=== PATIENT | female | born 1960 | race Caucasian/White ===

== ENCOUNTER 2018-01-18 11:27 | Day surgery (SDC) | payer MEDICAID, SELFPAY ==
[2018-01-16 15:23] VITALS: BP 139/89; PULSE 91; RESP 16; TEMP 36.6; O2SAT 92; BMI 27.1
--- NOTE | 2018-01-16 15:28 | SDCEKG_ITS ---
Test Reason : Blood Pressure : / mmHG Vent. Rate : 083 BPM Atrial Rate : 083 BPM P-R Int : 168 ms QRS Dur : 076 ms QT Int : 368 ms P-R-T Axes : 067 012 040 degrees QTc Int : 432 ms Normal sinus rhythm Septal infarct , age undetermined Abnormal ECG Confirmed by MARY PITTMAN, ZEE ([id number]), editor city ERIC CHEN ([id number]) on 01/17/2018 1:20:40 PM Referred By: Neville Stanford Confirmed By:ZEE HERNANDEZ MD
--- NOTE | 2018-01-16 15:46 | RAD_ITS ---
STUDY: X-RAY CHEST REASON FOR EXAM: Female, 57 years old. Pre-op right humerus fracture. TECHNIQUE: PA and lateral views of the chest. COMPARISON: None. FINDINGS: There are calcified breast implants bilaterally. The lungs are clear and expanded. There is no demonstrated pleural abnormality. Normal size heart. Normal mediastinum and adamaris. Normal visualized pulmonary arteries. There is atherosclerotic calcification of the aortic arch with tortuosity. There are diffuse degenerative changes of the visualized thoracic spine. There is a displaced fracture of the right humeral neck. There is no demonstrated abnormality of the visualized soft tissue structures of the upper abdomen. RAD/Chest PA and Lateral IMPRESSION: 1. No acute cardiopulmonary disease. 2. Displaced fracture of the right humeral neck. Electronically Signed: Romeo Salinas DO at 16:44 EDT Tel [phone], Service support ,
[2018-01-16 16:09] LABS: International Normalized Ratio 1.2; Prothrombin Time (Protime)PT. 15.1 SECONDS (11.7-14.9)
[2018-01-16 16:10] LABS: Partial Thromboplast Time 29.5 Seconds (24.1-36.2)
[2018-01-16 16:11] LABS: Hematocrit 41.1 % (37-47); Hemoglobin 13.6 g/dl (12.0-15.0); Mean Corp Hgb Conc 33.1 g/gl (32-36); Mean Corpuscular Volume 96.7 fL (81-99); Mean Platelet Vol. 9.9 fl (6.2-12.0); Platelet Count 285 K/mm3 (150-450); RBC Distribution Width CV 13.1 % (11.6-14.6); RBC Distribution Width SD 45.7 fl (35.1-43.9); Red Blood Count 4.25 M/mm3 (4.2-5.4); White Blood Count 6.9 K/mm3 (4.4-11.0)
[2018-01-16 16:16] LABS: Scan Indicated on CBC? Y/N NO
[2018-01-16 16:45] LABS: AST(SGOT) 30 U/L (15-37); Alanine Aminotransfer ALT/SGPT 32 U/L (13-56); Albumin, Serum 3.2 g/dL (3.2-5.0); Alkaline Phosphatase 150 U/L (45-117); Anion Gap 7 (5-15); BUN 10 mg/dL (7-18); BUN/Creat Ratio 19.2 RATIO (10-20); Calcium,Total 8.8 mg/dL (8.5-10.1); Chloride 101 mmol/L (98-107); Creatinine, Serum 0.52 mg/dL (0.55-1.02); EST Glomerular Filtration Rate 129 mL/min (>60); Est Glom Filt Rate - Afr Amer 156 mL/min (>60); Estimated Creatinine Clearance 117.47 ml/min; Globulin 4.8 g/dL (2.2-4.2); Glucose 97 mg/dL (74-106); Potassium 3.8 mmol/L (3.5-5.1); Sodium Level 137 mmol/L (136-145); Thyroid Stim Hormone (TSH) 1.05 uIU/mL (0.358-3.74)
[2018-01-18] VITALS (7 sets, daily range): BP systolic 127–144; BP diastolic 82–94; PULSE 88–104; RESP 16; TEMP 36.1–36.7; O2SAT 91–94; BMI 27.1
[2018-01-18] MEDS: Clindamycin 600 MG/50 ML BAG 100 MG IV (13:43)
--- NOTE | 2018-01-18 14:30 | RAD_ITS ---
STUDY: X-RAY - RIGHT HUMERUS REASON FOR EXAM: Female, 57 years old. ORIF humerus TECHNIQUE: 4 C-arm view(s) of the humerus. 141 seconds fluoroscopy time COMPARISON: None. FINDINGS: These limited field of view images show compression plate and screws fixating the proximal humeral fracture into anatomic alignment and position. Correlate with procedure note. Electronically Signed: Yohan Bridges MD at 0:01 EDT , Service support , RAD/Humerus min 2 Views
--- NOTE | 2018-01-18 15:52 | PCM.OPRPT ---
Report of Operation Date of Procedure: 01/18/18 Pre-Operative Diagnosis: Displaced 2 part right proximal humerus fracture Post-Operative Diagnosis: Displaced 2 part right proximal humerus fracture. Chronic right rotator cuff tear Surgery/Procedure Performed:: Open reduction internal fixation right proximal humerus fracture Description of Surgical Findings:: Adequately reduced fracture with good fixation. Shoulder was taken through range of motion under live fluoroscopy revealing no screws in the joint. Intraoperatively patient was noted to have a chronic tear of the supraspinatus tendon. Because she was not consented for this procedure and did not report previous shoulder issues we elected not to repair this. manager of warehouse: Bobby Jain Type of Anesthesia:: General Anesthesiologist: Ralph Childs Special Medications: 2 g Ancef Estimated Blood Loss (mL): 25 Fluids Replaced: 1400 Description of Procedure: 57-year-old female who sustained a fall with a severely displaced right proximal humerus fracture. Patient was in severe pain unable to function at home. She was taking narcotic pain medications. We discussed operative versus nonoperative treatment of this shoulder fracture based on the displacement and patient's pain I did recommend reduction internal fixation of the right proximal humerus. Risks benefits of the procedure were discussed with the patient including but not limited to blood loss, DVTs, PEs, neurovascular damage, infection, general risk of anesthesia including loss of life. We also discussed nonunion, malunion, hardware cut out and failure of the fracture. We also discussed natural history of these fractures including avascular necrosis and post traumatic osteoarthritis. Patient demonstrated understanding and wished to proceed. Procedure: On the date of the surgery patient's right arm was marked in the preoperative area. Patient was taken back to the operating room where there transferred to the table in the supine position. Anesthesia assumed control of the C-spine airway and all bony prominences were identified well-padded. Anesthesia administered general anesthetic patient was securely fastened the table and placed in a beachchair position. Live x-ray was used to verify that intraoperative x-rays to be appropriately obtained with patient's positioning. Once we had with the patient's position right upper exam he was prepped in sterile fashion while the surgeon scrubbed. Upon reentering the room the right upper extremity was draped in a standard orthopedic fashion. Incision was marked out using the anterior lateral edge of the acromion and going distally. We did rodger the area of the expected axillary nerve between 4 and 6 cm distal to the edge of the acromion. Timeout was called about agreed upon the psych of the psych him that she did be performed, patient's identity and antibiotic given. Continue with a at the skin subcu tissue fat on the fascia. Once identified the fascia and the raphae between the medial and anterior heads of the deltoid we split this. We bluntly dissected down until we are able to identify the axillary nerve in the area where we expected. Once we are able to identify the fracture, was placed in the fracture site in this help this to lever the bone for reduction. We are unable to obtain a full reduction so we placed a Steinmann pin for a joystick. By using the Steinmann pin in the car we are able to obtain an adequate reduction. Steinmann pin was then passed into the shaft in order to help maintain the reduction. Live x-ray was used to verify the reduction during this process and my physician registered dental assistant played a vital role in helping to position the arm for the x-rays while I was reducing the fracture under live x-ray. Once we had obtained an adequate reduction was noted there was a significant cortical defect laterally. Crouton allografts were used to pack this area. Once crouton allografts were used to support the lateral structures we then placed a 5 hole plate. In order to place the plate we placed a Lion underneath the area of the axillary nerve and passed it along the shaft of the humerus. Plate was then passed in the same manner underneath the collar. 2 K wires were passed proximally and a cortical screw was placed in the #3 full distally in order to help provisionally fix the plate and aid in fracture reduction. Once this was done we used live fluoroscopy to verify our plate position and fracture reduction. Once we are satisfied the locking screws were all placed proximally and 2 additional cortical screws were placed distally. These cortical screws were placed percutaneously. #3 cortical screw was removed and a locking screw was placed. The aiming arm was then removed and live fluoroscopy was used to take the arm through range of motion. There is at this time that we noted that the screws were long and needed to be removed. The proximal screws were removed one at a time and replaced with a screws of the appropriate length. Once the new screws were placed arm was taken through range of motion under live x-ray in screw position was verified. At this time we elected to place to calcar screws. We gently dissected out the screws distal to the area of the axillary nerve were able to place them using live fluoroscopy verifying the length of the screws. Once these final screws were placed with a scope to get out normal saline. Live x-ray was used to verify her fracture reduction and plate position which was satisfactory. Wound was copiously irrigated out with normal saline fascia was closed with #1 Vicryl and skin was closed with 2-0 Vicryl and skin arin. During the course of the procedure we did note that the patient had what appeared to be a chronic rotator cuff tear based on patient's lack of previous symptoms and no consent for this procedure we did not repair the rotator cuff. Sterile dressing was placed patient was placed back in her sling and awakened by anesthesia and transferred to the PACU for recovery. During the course of the procedure the physician registered dental assistant played a vital role. His intimate knowledge of my steps in the procedure aided in safe and expedient completion of the procedure. The PA played a vital rolls in positioning particularly in obtaining the appropriate beach chair position and securing the patient's body and head to the table. The PA was also vital in the retraction of soft tissues during the exposure and especially the glenoid work as this is a vital part of the procedure to prevent neurovascular damage. the PA was also vital and protecting soft tissues during times of bony cuts and reaming. He also played a vital role in closure with my direct supervision. The PA was also important during reduction and dislocation of the joint and trials intraoperatively. Grafts/Implants Used: Synthes 5 hole proximal humerus plate, allograft croutons - Complications none - Admit VTE Documentation VTE Present on Admission: No VTE Mechan Device Prophylaxis: SCD's, Thigh High NARA Hose VTE Pharm Prophylaxis ordered?: Yes
[2018-01-18] MEDS: Ketorolac 30 MG/ML Syringe IV (16:43)
== END 2018-01-18 17:55 | disposition home or self-care (01) ==
LOC: SDC 11:28 → ACINP 11:30 → AC 11:32
PROVIDERS: Anesthesiology; Visit Provider Specialist
PROC: (CPT 23615; principal; 2018-01-18 14:10)
DX: S42.221A 2-part displaced fracture of surgical neck of right humerus, initial encounter for closed fracture (principal); W19.XXXA Unspecified fall, initial encounter; Y93.89 Activity, other specified; Y92.9 Unspecified place or not applicable; M75.101 Unspecified rotator cuff tear or rupture of right shoulder, not specified as traumatic; G40.909 Epilepsy, unspecified, not intractable, without status epilepticus; J43.9 Emphysema, unspecified; Z99.81 Dependence on supplemental oxygen; F17.210 Nicotine dependence, cigarettes, uncomplicated; K21.9 Gastro-esophageal reflux disease without esophagitis; F32.9 Major depressive disorder, single episode, unspecified; F41.9 Anxiety disorder, unspecified; F20.9 Schizophrenia, unspecified; F60.3 Borderline personality disorder; E06.9 Thyroiditis, unspecified; Z87.01 Personal history of pneumonia (recurrent); H54.7 Unspecified visual loss; M19.90 Unspecified osteoarthritis, unspecified site; I23.1 Atrial septal defect as current complication following acute myocardial infarction; Z79.82 Long term (current) use of aspirin; Z79.899 Other long term (current) drug therapy
CPT/HCPCS: 23615; 64415; 71046; 73060; 76000; 80048; 80076; 82542; 84443; 85027; 85610; 85730; 86850; 86900; 93005; J7120; J2405

== ENCOUNTER 2018-04-24 08:38 | Outpatient (RCR) | payer MEDICAID, SELFPAY | END 2018-04-24 19:00 | disposition home or self-care (01) | LOC: PT 08:38 | PROVIDERS: Visit Provider Specialist | DX: S42.221D 2-part displaced fracture of surgical neck of right humerus, subsequent encounter for fracture with routine healing (principal) ==

== ENCOUNTER 2018-05-04 14:45 | Outpatient (REF) | payer SELFPAY | END 2018-05-04 18:45 | disposition home or self-care (01) | LOC: EDREF 14:45 | DX: Z04.41 Encounter for examination and observation following alleged adult rape (principal) ==

== ENCOUNTER → 2020-07-21 09:20 | Outpatient (CLI) | payer MEDICAID, SELFPAY ==
--- NOTE | 2020-07-21 09:32 | STEWCON_ITS ---
Reason For Study: SUH Stress Results Protocol: Greg Protocol WITH DEFINITY Maximum Predicted HR: 161 bpm Target HR: 137 bpm % Maximum Predicted HR: 85 % DurationHeart Rate Stage (mm:ss) (bpm) BP Comment Baseline 77 102/66No Chest Pain; 4 ML Diluted Definity Greg Protocol Stage I 3:00 129 104/62No Chest Pain; Mod Dyspnea Greg Protocol Stage II 0:42 137 / No Chest Pain; Severe Dyspnea; Dizzy Recovery 82 104/70No Chest Pain Stress Duration: 3:42 mm:ss Maximum Stress HR: 137 bpm METS: 4 Baseline Echocardiogram Findings Stress Echo Wall motion Data Resting WM Intermediate WM Stress WM Interpretation Summary Exercise stress test. Exercise stress echo. 60-year-old lady with a history of chest pain. Stress protocol: Resting EKG demonstrates normal sinus rhythm with a rate of 79 bpm normal intervals are noted resting blood pressure was 102/66 mmHg. The patient exercised according to the regular Greg protocol for a total duration of 3 minutes and 42 seconds. The maximum heart rate attained was 137 bpm which was 85% of max impacted heart rate the maximum workload was 4.8 metabolic equivalents. The patient maintained sinus rhythm throughout the recording. The test was terminated due to dyspnea. At rest and during peak exercise upsloping ST changes only were noted with no meet the criteria for ischemia. No clinical angina was noted the resting blood pressure was 102/66 with a peak blood pressure 110/74 mmHg. Stress echocardiogram. Resting and stress echocardiographic images were obtained with and without Definity enhancement. The baseline ejection fraction was 55% with a peak ejection fraction of 65%. There was thickening of all jaime and reduction of left ventricular cavity size noted. No clinical angina was noted. Conclusion: Exercise stress echo with no EKG or echocardiographic changes for ischemia at a low workload. The low workload may affect sensitivity for detection of ischemia. No arrhythmias noted. Ordering Physician: Priyank Tan Referring Physician: Chuck Gan Performed By: Isra Candelario, MARIANN
== END ==
PROVIDERS: PCP Student in an Organized Health Care Education/Training Program; Referring Provider Student in an Organized Health Care Education/Training Program; Visit Provider Student in an Organized Health Care Education/Training Program
DX: R06.00 Dyspnea, unspecified (principal); R06.02 Shortness of breath
CPT/HCPCS: 93017; 93350; Q9957; A4216; C8928

== ENCOUNTER → 2020-08-06 10:55 | Outpatient (CLI) | payer MEDICAID, SELFPAY ==
[2020-08-06 11:37] VITALS: BP 108/69; PULSE 85; RESP 16; TEMP 36.6; O2SAT 95; BMI 22.7
--- NOTE | 2020-08-06 11:43 | NURSING ---
Teaching and handout given for myelogram. Pt verbalizes understanding.
--- NOTE | 2020-08-06 12:15 | RAD_ITS ---
PROCEDURE: LUMBAR MYELOGRAM DATE OF EXAMINATION: 08/06/2020. INDICATION: Female, 60 years old. Low back pain. PHYSICIAN: Isai Olivera M.D. CONSENT: The patient''s history and physical findings were reviewed. The lumbar myelogram procedure was discussed with the patient prior to signing a consent. SEDATION: Local anesthesia with 3 mL of 1% lidocaine was used. FLUOROSCOPY TIME (if supplied): (1:42) minutes/seconds. Injection Information: 20 cc of ISOVUE-M 200. Number of images obtained: 4 TECHNIQUE: Digital fluoroscopy was used to identify a safe approach for the lumbar myelogram. The back was prepped and draped in usual fashion. Local anesthesia was utilized. Under fluoroscopic guidance a 22-gauge spinal needle was inserted into the spinal canal at the L3-L4 level. Clear spinal fluid was seen. 20 mL of Isovue 200 M was injected into the spinal canal. Multilevel disc space narrowing and spondylosis. Multilevel extradural defects causing deformity of the thecal sac at the L1-L2, L2-L3, L3-L4 and L4-L5 levels. The patient tolerated the procedure well. CT scan of the lumbar spine will follow. RAD/Lumbar Myelogram IMPRESSION: Successful lumbar myelogram with multiple anterior extradural defects at described. The patient tolerated the procedure well. A CT scan of the lumbar spine will follow. Electronically Signed: Isai Olivera, at 12:52 EDT , Service support ,
[2020-08-06 12:30] VITALS: BP 128/84; PULSE 87; RESP 16; O2SAT 97
[2020-08-06 13:15] VITALS: BP 125/75; PULSE 82; RESP 16; O2SAT 94
[2020-08-06 13:45] VITALS: BP 125/78; PULSE 86; RESP 16; O2SAT 94
[2020-08-06 14:15] VITALS: BP 124/89; PULSE 93; RESP 16; O2SAT 96
--- NOTE | 2020-08-06 15:00 | CT_ITS ---
STUDY: CT LUMBAR SPINE WITH INTRATHECAL CONTRAST (LUMBAR CT MYELOGRAM) REASON FOR EXAM: Female, 60 years old. Post myelogram imaging, bladder incontinence, lumbar disc disease, eval for cauda equina. RADIATION DOSAGE (If Supplied By Facility): CTDIvol = ( 13.82 ) mGy, DLP = ( 415.28 ) mGycm TECHNIQUE: Transaxial images were obtained from the L1 vertebra through the S1 vertebrae, following intrathecal administration of 20 ml of ISOVUE-M 200 contrast material, performed by Dr. Olivera. Please refer to this physicians technical notes for procedural details. Coronal and sagittal reconstructions were obtained. Individualized dose optimization techniques were used for this CT. COMPARISON: None. FINDINGS: Normal lumbar lordosis. There is a levo-scoliosis of the lumbar spine. Normal vertebrae of the lumbar spine. There is dependent layering of contrast material in the distal thecal sac. The conus medullaris terminates in a normal position at the L1-L2 level. There is no demonstrated cauda equina nerve root abnormality or intraspinal mass. L1-2: Marked degree of disc space narrowing with the spondylosis. Central posterior disc herniation causing deformity of the thecal sac and narrowing of the AP diameter of the thecal sac. L2-3: Anterior spondylosis. Left paracentral disc herniation causing deformity of the left side of the thecal sac and narrowing of the left intervertebral foramen. Facet joint osteoarthritis and hypertrophy. L3-4: Moderate sized central disc herniation extending towards the right side of the midline with deformity of the right side of the thecal sac and compression of the right exiting nerve root. L4-5: Marked degree of disc space narrowing with spondylosis and subchondral sclerosis. Moderate degree of central canal stenosis caused by combination of diffuse posterior disc bulge and hypertrophy of the ligamentum flavum. L5-S1: Marked degree of disc space narrowing and spondylosis. There is nonfilling of the left S1 nerve root. No significant disc herniation is seen. Normal visualized sacroiliac joints. Normal visualized paraspinous soft tissue structures. CT/Spine Lumbar WITH Contrast IMPRESSION: Multiple findings as discussed above. Electronically Signed: Isai Olivera, at 16:02 EDT , Service support ,
== END ==
PROVIDERS: PCP Student in an Organized Health Care Education/Training Program; Referring Provider Student in an Organized Health Care Education/Training Program; Visit Provider Student in an Organized Health Care Education/Training Program
DX: R15.9 Full incontinence of feces (principal); R32 Unspecified urinary incontinence; M54.9 Dorsalgia, unspecified; M51.16 Intervertebral disc disorders with radiculopathy, lumbar region
CPT/HCPCS: 62304; 72132; Q9965; Q9967

== ENCOUNTER 2021-07-28 12:27 | Inpatient (IN) | payer MEDICAID, SELFPAY ==
[2021-07-28] VITALS (32 sets, daily range): BP systolic 62–146; BP diastolic 29–101; PULSE 95–123; RESP 17–29; TEMP 36.2–36.6; O2SAT 91–100; BMI 29.7; BMI 28.8
[2021-07-28] MEDS: LORazepam 2 MG/ML Syringe 0.5 MG IV (13:57)
[2021-07-28] MEDS: 0.9% Normal Saline 1,000 ML 500 ML IV (13:58)
[2021-07-28 14:02] LABS: Absolute Lymphocyte Count 1.04 X10^3/uL (0.83-4.51); Absolute Neutrophil Count 4.7 X10^3/uL (2.0-7.7); Basophil# 0.06 X10^3/uL; Basophil% 0.8 % (0-1); Eosinophil# 0.14 X10^3/uL; Eosinophils% 1.8 % (0-5); Lymphocyte # 1.04 X10^3/ul (0.83-4.51); Lymphocyte % 13.5 % (19-41); Mean Corp Hgb Conc 35.7 g/dL (32-36); Mean Corpuscular Hgb 37.6 pg (27.0-32.0); Mean Corpuscular Volume 105.3 fL (81-99); Mean Platelet Vol. 10.6 fl (6.2-12.0); Monocyte# 1.66 X10^3/uL; Monocyte% 21.6 % (0-10); NRBC Flagged by Analyzer 0 % (0-5); Neutrophil # 4.74 X10^3/uL (2.7-7.7); Neutrophil % 61.8 % (47-70); POSITIVE DIFFERENTIAL YES; POSITIVE MORPHOLOGY YES; Platelet Count 112 K/mm3 (150-450); RBC Distribution Width CV 20.5 % (11.6-14.6); RBC Distribution Width SD 77.1 fl (35.1-43.9); Red Blood Count 2.66 M/mm3 (4.2-5.4); White Blood Count 7.7 K/mm3 (4.4-11.0)
[2021-07-28 14:03] LABS: Differential Indicated SCAN CRITERIA MET
[2021-07-28 14:15] LABS: AST(SGOT) 155 U/L (15-37); Alanine Aminotransfer ALT/SGPT 72 U/L (13-56); Albumin, Serum 2.2 g/dL (3.2-5.0); Alkaline Phosphatase 120 U/L (45-117); Anion Gap 10 (5-15); BUN 29 mg/dL (7-18); BUN/Creat Ratio 18.2 RATIO (10-20); Bilirubin, Direct 3.34 mg/dL (0.00-0.30); Calcium,Total 8.9 mg/dL (8.5-10.1); Chloride 104 mmol/L (98-107); Creatinine, Serum 1.59 mg/dL (0.55-1.02); EST Glomerular Filtration Rate 35 mL/min (>60); Est Glom Filt Rate - Afr Amer 43 mL/min (>60); Estimated Creatinine Clearance 36.59 ml/min; Globulin 4.9 g/dL (2.2-4.2); Glucose 96 mg/dL (74-106); Lipase 371 U/L (73-393); Potassium 4.6 mmol/L (3.5-5.1); Protein, Total 7.1 g/dL (6.4-8.2); Sodium Level 134 mmol/L (136-145)
[2021-07-28 14:25] LABS: Lactic Acid 3.5 mmol/L (0.4-1.9)
[2021-07-28 14:32] LABS: Anisocytosis 1+
[2021-07-28 14:38] LABS: Mucous, Urine 0 SEEN /hpf (<or=2+); Red Blood Cells-Urine 0 SEEN /hpf (0-5)
[2021-07-28 14:41] LABS: Color, Urine Amber (Yellow); Glucose, Dipstick Normal (Normal); Ketone-Dipstick 5 mg/dl (Negative); Leukocyte Esterase-Dipstick 25 /ul (Negative); Nitrite-Dipstick Positive (Negative); Occult Blood-Urine Negative /ul (Negative); Protein-Dipstick 30 mg/dl (Negative); Specific Gravity, Urine 1.015 (1.002-1.030); Urine Clarity Sl. Cloudy (Clear); Urine Urobilinogen 8 mg/dl (Normal)
--- NOTE | 2021-07-28 14:43 | EX.ED.DYSGE1 ---
HPI History of Present Illness Chief Complaint: Edema Informant: patient Narrative Narrative: Patient is a 61-year-old female presenting from home at the request of her PCP for concern of worsening ascites, anemia and ROME. Patient was admitted at [facility] on 07/20 and left AMA on 07/22. She has a history of alcohol abuse and states she has been trying to stop drinking but has been feeling shaky. She is also been having ongoing GI bleeding for the past few months. Patient was admitted she had a drop in her hemoglobin to 9.5, occult positive stools and an elevated creatinine 1.52. She had a paracentesis removing 2.3 L of fluid from her abdomen. Patient feels like her fluid is reaccumulated and she has had continued drainage of a small amount of fluid from her paracentesis site. Patient states her last drink was this morning which had a few sips of beer and last night she had half a beer because she felt she is going to withdraw. She does report a history of seizures. She knows she is been doing for the past 40 years. She denies any other complaints at this time. [facility] Medical History AA (alcohol abuse) Cirrhosis of liver GERD (gastroesophageal reflux disease) Seizure Home Medications acetaminophen 500 mg PO Q8 PRN 08/06/20 [History Last Taken Unknown] albuterol sulfate 2 puff INHALATION Q6H PRN PRN 08/06/20 [History Last Taken 07/28/21] folic acid 1 mg PO DAILY 08/06/20 [History Last Taken 07/28/21] pyridoxine (vitamin B6) 100 mg PO DAILY 08/06/20 [History Last Taken 07/28/21] pantoprazole 40 mg PO DAILY 07/28/21 [History Last Taken 07/28/21] thiamine HCl (vitamin B1) 100 mg PO DAILY 07/28/21 [History Last Taken 07/28/21] Allergy/AdvReac Type Severity Reaction Status Date / Time Penicillins Allergy Swelling Verified 07/28/21 12:30 Social History Smoking Status: Current every day smoker tobacco type: cigarettes ROS ROS ED Constitutional Constitutional ED: Reports change in weight and malaise; Denies chills or fever(s) Eyes Eyes: Denies change in vision Cardiovascular Cardiovascular: Denies chest pain or palpitations Gastrointestinal Gastrointestinal: Reports abdominal pain, hematochezia and other Details: Abdominal distention ; Denies vomiting Musculoskeletal Musculoskeletal: Denies arthralgias or myalgias Integumentary Denies rash Neurologic Neurologic: Reports weakness; Denies headache(s) Hematologic/Lymphatic Hematologic/Lymphatic: Reports easy bleeding and easy bruising EXAM Physical Exam Const Vital Signs: 07/28/21 12:27 07/28/21 12:51 07/28/21 14:00 Temperature 97.2 F L 97.8 F Temperature Source Temporal Temporal Pulse Rate 95 103 H Respiratory Rate 18 19 H Respiratory Effort Normal Respiratory Pattern Normal Blood Pressure 113/60 83/45 L Blood Pressure Mean 77 57 Blood Pressure Source Monitor Blood Pressure Position Semi-Fowlers Blood Pressure Location Right Arm Pulse Ox 100 97 Oxygen Delivery Method Room Air 07/28/21 14:27 07/28/21 15:00 07/28/21 15:15 Temperature 97.9 F Temperature Source Temporal Pulse Rate 109 H 113 H 113 H Respiratory Rate 20 H 17 20 H Respiratory Effort Respiratory Pattern Blood Pressure 87/51 L 82/52 L 83/53 L Blood Pressure Mean 63 62 63 Blood Pressure Source Blood Pressure Position Blood Pressure Location Pulse Ox 96 96 96 Oxygen Delivery Method Room Air Room Air Room Air General Appearance ED: other Chronically ill-appearing HEENT Reports dry mucous membranes Negative for tenderness Mouth ED: Yes dry mucous membranes Mouth: dry mucous membranes Eyes PERRL and EOMs intact bilaterally General Eye ED: Yes scleral icterus Neck supple Neck Narrative: Mild JVD present Chest Wall inspection of chest normal Resp normal respiratory effort and clear to auscultation bilaterally Cardio regular rhythm and no murmurs Rate: tachycardic GI GI Narrative: Distended abdomen, positive fluid wave. Patient is tender especially and just below the umbilicus where she has an overlying area of erythema and slight thickening of the skin. She does have a small persistent leak of likely ascites fluid from prior paracentesis in her left lower quadrant. Extremity General Extremety ED: Yes edema; Negative for tenderness General Extremity: edema Neuro oriented x3 and CN's II-XII intact bilaterally Neuro Narrative: No asterixis on exam Sensorium / Orientation: alert Motor Exam: general weakness Psych mental status grossly normal Skin Skin Narrative: Mild bruising on her right forearm. Spider hemangiomas on her chest wall. General Skin Exam: jaundice MDM MDM MDM Narrative Medical decision making narrative: Patient is evaluated for overall decompensation in the setting of acute liver failure. Patient is tachycardic and hypotensive in the ER. She is given a small IV fluid bolus, albumin, and midodrine with no improvement. Central line is placed and she is started on Levophed. Patient does have ascites as well as a lot of tenderness in her abdomen with some redness of her abdominal wall. Differential includes spontaneous bacterial peritonitis as well as abdominal wall cellulitis. She started on broad-spectrum antibiotics. Case is discussed with DEISY, Dr. Gamble, as well as a hospitalist. Initially patient was admitted to the PCU however with worsening hypotension and need for pressors, she is not admitted to the ICU. Patient is agreeable to splenic care. Lab Data Attestation: I reviewed the patient's lab results. Labs: Laboratory Results - last 24 hr 07/28/21 07/28/21 07/28/21 13:45 13:45 13:45 WBC 7.7 RBC 2.66 L Hgb 10.0 L Hct 28.0 L MCV 105.3 H MCH 37.6 H MCHC 35.7 RDW Std Deviation 77.1 H RDW Coeff of Meagan 20.5 H Plt Count 112 L MPV 10.6 Immature Gran % (Auto) 0.500 Neut % (Auto) 61.8 Lymph % (Auto) 13.5 L Haines % (Auto) 21.6 H Eos % (Auto) 1.8 Baso % (Auto) 0.8 Absolute Neuts (auto) 4.7 Absolute Lymphs (auto) 1.04 Nucleated RBC % 0 Differential Comment COMMENT Anisocytosis 1+ PT INR Sodium 134 L Potassium 4.6 Chloride 104 Carbon Dioxide 20.0 L Anion Gap 10 BUN 29 H Creatinine 1.59 H Estim Creat Clear Calc 36.59 Est GFR (MDRD) Af Amer 43 L Est GFR (MDRD) Non-Af 35 L BUN/Creatinine Ratio 18.2 Glucose 96 Lactic Acid Calcium 8.9 Phosphorus Magnesium Total Bilirubin 5.60 H Direct Bilirubin 3.34 H AST 155 H ALT 72 H Alkaline Phosphatase 120 H Ammonia Total Protein 7.1 Albumin 2.2 L Globulin 4.9 H Lipase 371 Urine Color Urine Clarity Urine pH Ur Specific [place] Urine Protein Urine Glucose (UA) Urine Ketones Urine Occult Blood Urine Nitrite Urine Bilirubin Urine Urobilinogen Ur Leukocyte Esterase Urine RBC Urine WBC Ur Squamous Epith Cells Urine Bacteria Hyaline Casts Urine Mucus Ethyl Alcohol 94.0 Blood Type Antibody Screen 07/28/21 07/28/21 07/28/21 13:45 13:45 13:45 WBC RBC Hgb Hct MCV MCH MCHC RDW Std Deviation RDW Coeff of Meagan Plt Count MPV Immature Gran % (Auto) Neut % (Auto) Lymph % (Auto) Haines % (Auto) Eos % (Auto) Baso % (Auto) Absolute Neuts (auto) Absolute Lymphs (auto) Nucleated RBC % Differential Comment Anisocytosis PT INR Sodium Potassium Chloride Carbon Dioxide Anion Gap BUN Creatinine Estim Creat Clear Calc Est GFR (MDRD) Af Amer Est GFR (MDRD) Non-Af BUN/Creatinine Ratio Glucose Lactic Acid 3.5 H* Calcium Phosphorus 2.7 Magnesium 1.7 Total Bilirubin Direct Bilirubin AST ALT Alkaline Phosphatase Ammonia Total Protein Albumin Globulin Lipase Urine Color Urine Clarity Urine pH Ur Specific [place] Urine Protein Urine Glucose (UA) Urine Ketones Urine Occult Blood Urine Nitrite Urine Bilirubin Urine Urobilinogen Ur Leukocyte Esterase Urine RBC Urine WBC Ur Squamous Epith Cells Urine Bacteria Hyaline Casts Urine Mucus Ethyl Alcohol Blood Type A POSITIVE Antibody Screen NEGATIVE 07/28/21 07/28/21 07/28/21 14:32 15:20 15:20 WBC RBC Hgb Hct MCV MCH MCHC RDW Std Deviation RDW Coeff of Meagan Plt Count MPV Immature Gran % (Auto) Neut % (Auto) Lymph % (Auto) Haines % (Auto) Eos % (Auto) Baso % (Auto) Absolute Neuts (auto) Absolute Lymphs (auto) Nucleated RBC % Differential Comment Anisocytosis PT 23.5 H INR 2.2 Sodium Potassium Chloride Carbon Dioxide Anion Gap BUN Creatinine Estim Creat Clear Calc Est GFR (MDRD) Af Amer Est GFR (MDRD) Non-Af BUN/Creatinine Ratio Glucose Lactic Acid Calcium Phosphorus Magnesium Total Bilirubin Direct Bilirubin AST ALT Alkaline Phosphatase Ammonia 44.0 H Total Protein Albumin Globulin Lipase Urine Color Izabel Urine Clarity Sl. Cloudy Urine pH 5.0 Ur Specific [place] 1.015 Urine Protein 30 H Urine Glucose (UA) Normal Urine Ketones 5 H Urine Occult Blood Negative Urine Nitrite Positive H Urine Bilirubin 3 H Urine Urobilinogen 8 H Ur Leukocyte Esterase 25 H Urine RBC 0 SEEN Urine WBC 0-5 SEEN Ur Squamous Epith Cells 0-5 SEEN Urine Bacteria 1+ Hyaline Casts 5-10 SEEN Urine Mucus 0 SEEN Ethyl Alcohol Blood Type Antibody Screen Radiography Chest X-Ray - ED: 1 View, Read by ED Physician, Read by Radiologist and - (Right central line in appropriate position) Procedures Other Procedures Procedure(s): Central line Informed consent obtained. Patient prepped and draped in normal sterile fashion. 1 cc of 1% lidocaine without epinephrine used to anesthetize the area. Seldinger technique utilized. Ultrasound used to visualize placement. 1 attempts. No immediate complications. Patient tolerated procedure well. Critical Care Time Critical Care Time: Yes Critical care time (excluding procedures): 30-74 minutes (50), Discussing w/Patient &/or Family/Nut Grinder, Discussing w/Consultants, Arranging Admission or Transfer and Performing Direct Patient Care at Bedside Discharge Plan Triage Chief Complaint: Edema ED Provider: Ania Bro Dx/Rx/DC Orders Clinical Impression: Acute hypotension, Acidosis, lactic, Alcoholic cirrhosis of liver, Abdominal wall cellulitis, Elevated bilirubin, Acute kidney injury, Coagulopathy Primary Care Provider: Priyank Tan Disposition Disposition: Acute Care Hospital [facility]
[2021-07-28 14:45] LABS: Urine Bilirubin Dipstick 3 mg/dL (Negative)
[2021-07-28 14:49] LABS: Bacteria 1+ /hpf (None Seen); Hyaline Cast 5-10 SEEN /lpf (0-5); Squamous Epithelial Cells - UA 0-5 SEEN /hpf (5-10); White Blood Cells 0-5 SEEN /hpf (0-5)
--- NOTE | 2021-07-28 15:11 | PCM.HP.STD ---
HPI - General General Date of Admission: 07/28/21 Date of Service: 07/28/21 HPI Narrative The patient is a 61 y/o F w/ PMHx: EtOH abuse (ongoing but attempting to decrease with usually 1-2 tallboys daily and 1-2 larger shots vodka, last drink early AM), Tobacco use, Chronic COPD, Anxiety and Depression/Schizophrenia, Hypothyroidism, GERD, recent admission at [facility] 07/20-07/22/21 leaving AMA with per records new diagnosis acute decompensated cirrhosis, GI bleed, EtOH withdrawal and ROME with paracentesis performed at that time with 2.3 L removed with reported worsening abdominal distention, lower extremity swelling, fatigue, dyspnea especially with exertion, some fluid drainage from the recent paracentesis site as well as worsening tremors with decreased attempt of alcohol intake prompting eventual ED presentation. Patient does admit to ongoing issues with dark stools. Work-up in the ED included upon initial ED presentation T 97.9, heart rate 113, BP 83/53, respiratory rate 20, 96% on room air however patient became significantly hypotensive decreasing to 65/52 eventually requiring central line placement and norepinephrine initiation, CBC with WC 7.7, hemoglobin 8.9, platelet 112 without marked shift, coags with PT 23.5, INR 2.2, CMP with sodium 134,, DEXA 20, BUN/creatinine 29/1.59, lactic acid 3.5, total bilirubin 5.60, direct bilirubin 3.34, AST/LT 155/72, alk phos 120, urinalysis with specific raphe 1.015, protein 30, ketones 5, positive nitrite, 3 bilirubin, 8 urobilinogen, 25 leukocyte esterase, urine to BCs only 0-5 with 1+ urine bacteria, chest x-ray with no acute cardiopulmonary findings with follow-up film for central line placement with right IJ in appropriate place. In the ED patient judiciously hydrated given presentation, eventually initiation of norepinephrine, administered albumin, Rocephin, Ativan, midodrine, Protonix IV, Trental, vancomycin as well as initiation of octreotide drip. Blood culture x2 pending per ED. [facility] Medical History AA (alcohol abuse) Cirrhosis of liver COPD (chronic obstructive pulmonary disease) GERD (gastroesophageal reflux disease) Seizure Tobacco use Home Medications acetaminophen 500 mg PO Q8 PRN 08/06/20 [History Last Taken Unknown] albuterol sulfate 2 puff INHALATION Q6H PRN PRN 08/06/20 [History Last Taken 07/28/21] folic acid 1 mg PO DAILY 08/06/20 [History Last Taken 07/28/21] pyridoxine (vitamin B6) 100 mg PO DAILY 08/06/20 [History Last Taken 07/28/21] pantoprazole 40 mg PO DAILY 07/28/21 [History Last Taken 07/28/21] thiamine HCl (vitamin B1) 100 mg PO DAILY 07/28/21 [History Last Taken 07/28/21] Allergy/AdvReac Type Severity Reaction Status Date / Time Penicillins Allergy Swelling Verified 07/28/21 12:30 Family History (Updated 07/28/21 @ 20:[address] Rabia Merchant MD) Mother Heart disease Hypertension Diabetes Father Heart disease Hypertension Diabetes Surgical History (Updated 07/28/21 @ 20:[address] Rabia Merchant MD) History of surgery on arm Hx of breast implants, bilateral S/P cholecystectomy Social History (Updated 07/28/21 @ 20:[address] Rabia Merchant MD) household members: none Smoking Status: Current every day smoker tobacco type: cigarettes Smoking packs per day: 0.5 Smoking cigarettes per day: 10.0 how long ago did patient quit smoking: Ongoing 1/2 ppd since late 20s. alcohol intake: current alcohol intake frequency: 3 or more drinks per day Alcohol type: beer and hard liquor details: Several tall boys and vodka daily. substance use type: does not use ROS ROS Narrative Admission Review of Systems: CONSTITUTIONAL: No weight loss, fever, chills, + weakness or fatigue. HEENT: Eyes: No visual loss, blurred vision, double vision or yellow sclerae. Ears, Nose, Throat: No hearing loss, sneezing, congestion, runny nose or sore throat. SKIN: + Staged ecchymoses, abdominal redness. CARDIOVASCULAR: + Significant edema, orthopnea. No chest pain, chest pressure or chest discomfort, palpitations, syncopal events. RESPIRATORY: + shortness of breath, occasional wheezing, no cough or sputum, hemoptysis. GASTROINTESTINAL: + anorexia, nausea without vomiting, abdominal pain, abdominal distention, small amount of fluid drainage from the prior paracentesis site, dark stools. GENITOURINARY: No dysuria, frequency, urgency or retention. NEUROLOGICAL: + Tremulous, tactile disturbances. Does have a history of seizure withdrawal. No headache, dizziness, syncope, paralysis, ataxia, numbness or tingling in the extremities, focal weakness, change in bowel or bladder control. MUSCULOSKELETAL: No muscle, back pain, joint pain or stiffness. HEMATOLOGIC: + anemia, bleeding or bruising. LYMPHATICS: No enlarged nodes. No history of splenectomy. PSYCHIATRIC: + history of depression or anxiety. ENDOCRINOLOGIC: No reports of sweating, cold or heat intolerance. No polyuria or polydipsia. ALLERGIES: No history of asthma, hives, eczema or rhinitis. Vital Signs Vital Signs Vital Signs: 07/28/21 12:27 07/28/21 12:51 07/28/21 14:00 Temperature 97.2 F L 97.8 F Temperature Source Temporal Temporal Pulse Rate 95 103 H Respiratory Rate 18 19 H Respiratory Effort Normal Respiratory Pattern Normal Blood Pressure 113/60 83/45 L Blood Pressure Mean 77 57 Blood Pressure Source Monitor Blood Pressure Position Semi-Fowlers Blood Pressure Location Right Arm Pulse Ox 100 97 Oxygen Delivery Method Room Air 07/28/21 14:27 Temperature Temperature Source Pulse Rate 109 H Respiratory Rate 20 H Respiratory Effort Respiratory Pattern Blood Pressure 87/51 L Blood Pressure Mean 63 Blood Pressure Source Blood Pressure Position Blood Pressure Location Pulse Ox 96 Oxygen Delivery Method Room Air Weight Weight: 190 lb Body Mass Index (BMI) 29.7 Physical Exam Narrative Physical Examination: General: Awake, alert, oriented x 3 although very fatigued and becoming mildly lethargic, remains cooperative, seated upright in the ED bed, ill-appearing. Skin: Mildly jaundiced color, normal turgor, mild appearance icterus, no cyanosis. HEENT: AT/NC, EOMI, PERRLA, dry MM, no carotid bruits or JVD noted. Lungs: Diffusely diminished, greater bases, increased respiratory rate but no obvious respiratory distress, occasional wheezing, no rales or rhonchi. Heart: Tachycardic with regular rhythm; no gallop, rub audible. Abdomen: Tense, significantly tender to palpation with rebound and guarding, mild redness to the patient left of umbilicus, distant bowel sounds, distention obvious, anasarca evident, difficult to assess HSM secondary to severity of distention and pain with evaluation. Extremities: No cyanosis, no clubbing, significant edema, 4+ pitting pedal up to the lower abdomen, anasarca evident. Neurological: Patient awake, alert, oriented x 3, cognitive function intact but extremely fatigued; pupils equally reactive to light and accommodation, cranial nerves II-XII grossly normal, moving all 4 extremities, no focal deficits, strength severely globally Olivia secondary to acute presentation. Psychiatric: Affect appears fatigued, lethargic, no acute evidence of depressive or anxiety feelings but does have underlying history. Results Lab / Micro Data Result Diagrams: 07/28/21 18:35 07/28/21 13:45 Labs: Laboratory Results - last 24 hr 07/28/21 13:45: WBC 7.7, RBC 2.66 L, Hgb 10.0 L, Hct 28.0 L, MCV 105.3 H, MCH 37.6 H, MCHC 35.7, RDW Std Deviation 77.1 H, RDW Coeff of Meagan 20.5 H, Plt Count 112 L, MPV 10.6, Immature Gran % (Auto) 0.500, Neut % (Auto) 61.8, Lymph % (Auto) 13.5 L, [place]bot % (Auto) 21.6 H, Eos % (Auto) 1.8, Baso % (Auto) 0.8, Absolute Neuts (auto) 4.7, Absolute Lymphs (auto) 1.04, Nucleated RBC % 0, Differential Comment COMMENT, Anisocytosis 1+ 07/28/21 13:45: Sodium 134 L, Potassium 4.6, Chloride 104, Carbon Dioxide 20.0 L, Anion Gap 10, BUN 29 H, Creatinine 1.59 H, Estim Creat Clear Calc 36.59, Est GFR (MDRD) Af Amer 43 L, Est GFR (MDRD) Non-Af 35 L, BUN/Creatinine Ratio 18.2, Glucose 96, Calcium 8.9, Total Bilirubin 5.60 H, Direct Bilirubin 3.34 H, AST 155 H, ALT 72 H, Alkaline Phosphatase 120 H, Total Protein 7.1, Albumin 2.2 L, Globulin 4.9 H, Lipase 371 07/28/21 13:45: Ethyl Alcohol 94.0 07/28/21 13:45: Lactic Acid 3.5 H* 07/28/21 13:45: Blood Type A POSITIVE, Antibody Screen NEGATIVE 07/28/21 14:32: Urine Color Izabel, Urine Clarity Sl. Cloudy, Urine pH 5.0, Ur Specific [place] 1.015, Urine Protein 30 H, Urine Glucose (UA) Normal, Urine Ketones 5 H, Urine Occult Blood Negative, Urine Nitrite Positive H, Urine Bilirubin 3 H, Urine Urobilinogen 8 H, Ur Leukocyte Esterase 25 H, Urine RBC 0 SEEN, Urine WBC 0-5 SEEN, Ur Squamous Epith Cells 0-5 SEEN, Urine Bacteria 1+, Hyaline Casts 5-10 SEEN, Urine Mucus 0 SEEN Assessment & Plan Assessment/Plan (1) Septic shock: (2) SBP (spontaneous bacterial peritonitis): (3) GI bleed: QUALIFIERS: GI bleed type/associated pathology: unspecified gastrointestinal hemorrhage type Qualified Code(s): K92.2 - Gastrointestinal hemorrhage, unspecified (4) Acute kidney injury: (5) Ascites due to alcoholic cirrhosis: PLAN: The patient is a 61 y/o F w/ PMHx: EtOH abuse, Tobacco use, Chronic COPD, Anxiety and Depression/Schizophrenia, Hypothyroidism, GERD, recent admission at [facility] 07/20-07/22/21 leaving AMA with per records new diagnosis acute decompensated cirrhosis, GI bleed, EtOH withdrawal and ROME with paracentesis performed at that time with 2.3 L removed with reported worsening abdominal distention, lower extremity swelling, fatigue, dyspnea especially with exertion, some fluid drainage from the recent paracentesis site as well as worsening tremors with decreased attempt of alcohol intake prompting eventual ED presentation. 1. Acute Septic Shock secondary to Suspected SBP w/ evidence of sepsis-induced organ dysfunction/tissue hypoperfusion and sepsis induced hypotension despite adequate fluid administration requiring pressor therapy initiation: Will admit patient to the ICU, java development manager consulted and aware, maintain on cardiac monitoring, continue to maintain on cardiac monitoring, continue judicious fluids given severity of decompensated cirrhotic presentation concurrently, deferring aggressive 30 cc/kg bolus given this presentation, continued on midodrine concurrently, trend lactic acid per facility protocol, maintain on IV Rocephin and vancomycin for suspected spontaneous bacterial peritonitis, GI consulted and planned paracentesis with fluid to be sent for evaluation, blood culture x2 pending per ED, initiated also on midodrine and albumin as noted. 2. Acute GI Bleed w/ resultant Acute Blood Loss Anemia complicated by alcohol abuse: Will maintain on judicious IVFs, obtain serial H+H q 6 hours, maintain on IV PPI, continue octreotide. Given patient is cirrhotic will place on prophylaxis w/ rocephin as well as concurrent concern as noted above. GI consulted and following. 3. Acute Worsened Ascites w/ Acute Decompensated Cirrhosis and Alcholic Hepatitis: Currently n.p.o. awaiting GI evaluation given concern for also concurrent GI bleed as noted, will hold on significant diuresis as currently planning to initiate norepinephrine with significant hypotension, awaiting GI for paracentesis, may need to initiate Lasix diuresis once BP is improved, ammonia 44, trend CMP, await evaluation as noted #1. Continued on midodrine, pentoxyfilline per GI request. 4. Acute EtOH Withdrawal: Given presentation with withdrawal and seizure history of prior, will maintain on CIWA protocol with Ativan given severity of underlying liver disease, will obtain magnesium and Phos levels and replete as needed, may add as needed agents as able however severity of liver disease and acute presentation precludes some usage. Case management consulted for alcohol abuse. 5. Acute kidney injury versus advancing chronic kidney disease, unclear stage: Suspect likely ROME secondary to #1 with hypoperfusion and acute presentation #2, #3. Admission BUN/Cr 29/1.59, prior baseline creatinine noted to be 0.5 however this is remote in from 2018. Will hydrate, hold nephrotoxic medications and repeat chemistry in AM. If no improvement would plan FeNa assessment. 6. Questionable abdominal wall cellulitis: Patient with mild reddened appearance of the abdomen to the left of the umbilicus, not at the region of prior to paracentesis of note, maintain on broad-spectrum antibiotic therapy as noted above with bank and Rocephin, will continue to monitor erythema. 7. Chronic thrombocytopenia: Admission platelets 112, likely secondary to acute presentation as noted with underlying liver cirrhosis and alcohol abuse, trend CMP. 8. Chronic COPD: Will maintain on oxygen with wean as tolerated to room air, continue ATC duonebs, PRN albuterol, HOB, IS parameters. 9. Tobacco Abuse: Encouraged cessation, inpatient consultation per RT, NR if desired. 10. GERD: We will maintain on IV PPI as noted above. 11. DVT prophylaxis: SCDs, hold any chemoprophylaxis given acute presentation as noted. 12. CODE status: Patient HCPOA nor living will in place, given acute presentation with septic shock and severe underlying liver disease, iscussed CODE status at length including difference between FULL code, DNR-CCA and DNR-CC status. Following discussions about the differences in these status, requested Full Code status. Advanced Care Planning Face to Face Time: 16 minutes. Charges/Coding Visit Charges Inpatient E&M: 36257 Init Hosp L3 Procedures Hospitalists Procedures: 96098 Advncd Care Plan 30 Min
[2021-07-28] MEDS: Midodrine HCl 5 MG Tablet 10 MG PO (15:12)
[2021-07-28] MEDS: Pentoxifylline 400 MG Tablet PO (15:12)
[2021-07-28] MEDS: Ceftriaxone 1 GM/50 ML BAG IV (15:19)
[2021-07-28] MEDS: Albumin Human 25% (100 mL) 25 GM/100 ML BAG IV (15:26)
--- NOTE | 2021-07-28 15:34 | NURSING ---
PCU WHITE LIVER FAILURE, ANEMIA
[2021-07-28 15:36] LABS: International Normalized Ratio 2.2; Prothrombin Time (Protime)PT. 23.5 SECONDS (11.7-14.9)
--- NOTE | 2021-07-28 16:13 | NURSING ---
ICU 7
[2021-07-28 16:21] LABS: Magnesium 1.7 mg/dL (1.6-2.6); Phosphorus 2.7 mg/dL (2.5-4.9)
--- NOTE | 2021-07-28 16:33 | RAD_ITS ---
INDICATION: central line placement verification EXAMINATION/TECHNIQUE: X-RAY - XR Chest 1 View COMPARISON: 01/16/2018. FINDINGS: The lungs are clear. Tortuous and calcified thoracic aorta. The heart is not enlarged. Right IJ central venous catheter with tip at the RA/SVC junction. Bilateral breast implants. No pleural effusion or pneumothorax. Degenerative changes of the thoracic spine and shoulders. Chronic fracture deformity of the right proximal humerus status post ORIF with plate and screw construct. RAD/CXR for Line Placement IMPRESSION: Right IJ central venous catheter with tip at the RA/SVC junction. Electronically Signed: Altaf Estevez MD at 18:01 EDT Tel , Service support ,
--- NOTE | 2021-07-28 17:44 | PCM.OP.BLANK ---
Problems Associated Problem List Diagnoses (1) Ascites due to alcoholic cirrhosis: Operative Report Date of Procedure: 07/28/21 The patient will's in the supine position. After informed consent was signed and the risk and benefits were explained to the procedure. The left lower quadrant was cleaned with a Betadine solution. It was then anesthetized 1% lidocaine solution. A small incision was made in the left lower quadrant. With the use of a trocar needle was placed in the left lower quadrant. There was immediate return of a cloudy serosanguineous fluid. The fluid was sent for analysis including cell count with differential and culture. Then with the trocar needle a suction catheter was used to remove 3.5 L of cloudy serosanguineous fluid. There was minimal bleeding from the procedure and she tolerated procedure without any problems. A pressure dressing was placed in the left lower quadrant. Procedures Gastroenterology Procedures [id number]: Other Procedure See Report
--- NOTE | 2021-07-28 17:48 | CON.PCM.GI_ITS ---
HPI Consult Data Date of Consult: 07/28/21 HPI Narrative HPI Narrative: KATIE PRO, is a 61-year-old female presenting from home at the request of her PCP for concern of worsening ascites, anemia and ROME. Patient was admitted at [facility] on 07/20 and left AMA on 07/22. She has a history of alcohol abuse and states she has been trying to stop drinking but has been feeling shaky. She is also been having ongoing GI bleeding for the past few months. Patient was admitted she had a drop in her hemoglobin to 9.5, occult positive stools and an elevated creatinine 1.52. She had a paracentesis removing 2.3 L of fluid from her abdomen. Patient feels like her fluid is reaccumulated and she has had continued drainage of a small amount of fluid from her paracentesis site. Patient states her last drink was this morning which had a few sips of beer and last night she had half a beer because she felt she is going to withdraw. She does report a history of seizures. She knows she is been doing for the past 40 years. She denies any other complaints at this time. She was hypotensive and tachycardic in the emergency room. Biochemical analysis was consistent with acute alcoholic hepatitis. Her Madre score calculated in the ED was 62. I requested that she be started on Pentoxyfilline 400 mg 3 times a day. She had a central line placed. I also requested that she be put on midodrine and octreotide and Zosyn therapy along with vancomycin. [facility] Medical History AA (alcohol abuse) Cirrhosis of liver GERD (gastroesophageal reflux disease) Seizure Home Medications acetaminophen 500 mg PO Q8 PRN 08/06/20 [History Last Taken Unknown] albuterol sulfate 2 puff INHALATION Q6H PRN PRN 08/06/20 [History Last Taken 07/28/21] folic acid 1 mg PO DAILY 08/06/20 [History Last Taken 07/28/21] pyridoxine (vitamin B6) 100 mg PO DAILY 08/06/20 [History Last Taken 07/28/21] pantoprazole 40 mg PO DAILY 07/28/21 [History Last Taken 07/28/21] thiamine HCl (vitamin B1) 100 mg PO DAILY 07/28/21 [History Last Taken 07/28/21] Allergy/AdvReac Type Severity Reaction Status Date / Time Penicillins Allergy Swelling Verified 07/28/21 12:30 Social History Smoking Status: Current every day smoker tobacco type: cigarettes ROS Review of Systems ROS Unobtainable: other Constitutional Constitutional: Denies fatigue, fever(s), poor appetite, weight gain or weight loss ENT HEENT: Denies mouth lesions Cardiovascular Cardiovascular: Denies abdominal bloating, abdominal edema or abdominal pain Respiratory/Chest Respiratory/Chest: Denies change in mental status, change in phlegm color, chest congestion or chest tightness Gastrointestinal Gastrointestinal: Reports bloating and nausea; Denies belching, change in bowel habits, change in stool character, chewing difficulty, coffee ground emesis, constipation, cramping, diarrhea, dyspepsia, dysphagia, early satiety, excessive flatus, fecal incontinence, heartburn, hematemesis, hematochezia, hemorrhoids, loose stools, melena, odynophagia, rectal bleeding, tenesmus, vomiting or weight changes Genitourinary Genitourinary: Denies abdominal discomfort, burning urination or itching Musculoskeletal Musculoskeletal: Reports as per HPI; Denies muscle weakness or myalgias Integumentary Integumentary: Denies jaundice Neurologic Neurologic: Denies lack of coordination or weakness Psychiatric Psychiatric: Denies confusion, depression, memory loss, mood swings, paranoia or suicidal ideation Endocrine Endocrinology: Denies systems reviewed and no addt'l complaints, except as documented Hematologic/Lymphatic Hematologic/Lymphatic: Denies anemia, easy bleeding, easy bruising or lymphadenopathy Allergic/Immunologic Allergic/Immunologic: Denies systems reviewed and no addt'l complaints, except as documented Physical Exam Const alert General Appearance: cooperative Orientation / Consciousness: oriented to person HEENT hearing grossly normal bilaterally Head and Scalp: normal to inspection Face and Sinus: face symmetric Nose: external nose normal Mouth: oral and palatal mucosa normal Eyes conjunctivae normal General Eye: normal appearance of both eyes Neck full ROM General: normal visual inspection Lymph Lymphatic: no lymphadenopathy noted Chest inspection of chest normal and palpation of chest normal Chest: symmetrical chest wall rise Resp normal respiratory effort Effort and Inspection: able to speak in complete sentences Cardio regular rate GI non-distended Inspection: abdominal wall ecchymosis, edema findings, abdominal distention, fluid wave present and localized swelling Percussion: normal to percussion Rectal Exam: deferred Neuro Speech: speech normal Gait (Neuro): normal gait Lab / Micro Data Result Diagrams: 07/28/21 13:45 07/28/21 13:45 Labs: Laboratory Results - last 24 hr 07/28/21 13:45: WBC 7.7, RBC 2.66 L, Hgb 10.0 L, Hct 28.0 L, MCV 105.3 H, MCH 37.6 H, MCHC 35.7, RDW Std Deviation 77.1 H, RDW Coeff of Meagan 20.5 H, Plt Count 112 L, MPV 10.6, Immature Gran % (Auto) 0.500, Neut % (Auto) 61.8, Lymph % (Auto) 13.5 L, [place] % (Auto) 21.6 H, Eos % (Auto) 1.8, Baso % (Auto) 0.8, Absolute Neuts (auto) 4.7, Absolute Lymphs (auto) 1.04, Nucleated RBC % 0, Differential Comment COMMENT, Anisocytosis 1+ 07/28/21 13:45: Sodium 134 L, Potassium 4.6, Chloride 104, Carbon Dioxide 20.0 L , Anion Gap 10, BUN 29 H, Creatinine 1.59 H, Estim Creat Clear Calc 36.59, Est GFR (MDRD) Af Amer 43 L, Est GFR (MDRD) Non-Af 35 L, BUN/Creatinine Ratio 18.2, Glucose 96, Calcium 8.9, Total Bilirubin 5.60 H, Direct Bilirubin 3.34 H, AST 155 H, ALT 72 H, Alkaline Phosphatase 120 H, Total Protein 7.1, Albumin 2.2 L, Globulin 4.9 H, Lipase 371 07/28/21 13:45: Ethyl Alcohol 94.0 07/28/21 13:45: Lactic Acid 3.5 H* 07/28/21 13:45: Blood Type A POSITIVE, Antibody Screen NEGATIVE 07/28/21 13:45: Phosphorus 2.7, Magnesium 1.7 07/28/21 14:32: Urine Color Izabel, Urine Clarity Sl. Cloudy, Urine pH 5.0, Ur Specific [place] 1.015, Urine Protein 30 H, Urine Glucose (UA) Normal, Urine Ketones 5 H, Urine Occult Blood Negative, Urine Nitrite Positive H, Urine Bilirubin 3 H, Urine Urobilinogen 8 H, Ur Leukocyte Esterase 25 H, Urine RBC 0 SEEN, Urine WBC 0-5 SEEN, Ur Squamous Epith Cells 0-5 SEEN, Urine Bacteria 1+, Hyaline Casts 5-10 SEEN, Urine Mucus 0 SEEN 07/28/21 15:20: PT 23.5 H, INR 2.2 07/28/21 15:20: Ammonia 44.0 H Assessment & Plan Assessment/Plan (1) Ascites due to alcoholic cirrhosis: PLAN: She will undergo large-volume paracentesis which would be diagnostic and therapeutic to rule out SBP. We will have her on Zosyn therapy and vancomycin. If her cell count and culture are negative she will still need to be on ciprofloxacin 750 mg once a week due to her recent history of multiple taps. Also recommend that she go on albumin 25 g every 8 hours. (2) Acute hypotension: PLAN: Acute hypotension likely secondary to SBP. (3) Alcoholic cirrhosis of liver: PLAN: Patient is end-stage liver disease and is not a transplant candidate due to fact that she is still actively drinking (4) Alcoholic hepatitis: PLAN: Patient has a Madre score that in normal circumstances would require steroid therapy however because of possible sepsis we will only give Pentoxyfilline. She will also be given octreotide at 12.5 mg an hour, and PPI drip. Plan is for endoscopy in the morning. Charges/Coding Visit Charges Inpatient E&M: 44146 Init Hosp L3
[2021-07-28 17:53] LABS: Reflex Lactate? Y
[2021-07-28 18:43] LABS: Hematocrit 25.1 % (37-47); Hemoglobin 8.9 g/dL (12.0-15.0)
[2021-07-28 18:50] LABS: Lactic Acid 3.1 mmol/L (0.4-1.9)
[2021-07-28 19:14] LABS: M R Staph aureus DNA By PCR Negative (Negative); Probe Check PASS; Specimen Processing Control PASS; Staph aureus DNA By PCR NEGATIVE (Negative)
[2021-07-28] MEDS: Ondansetron 4 MG/2 ML Vial IV (20:17)
[2021-07-28] MEDS: LORazepam 2 MG/ML Syringe IV (20:24)
[2021-07-28] MEDS: 0.9% Normal Saline 1,000 ML 75 ML IV (20:35)
--- NOTE | 2021-07-28 20:56 | NURSING ---
Pt unable to void using purewick, assisted pivot to BSC. Pt experiencing nausea, vomiting, coughing. Pt has tremors and headache, very weak. Tachycardic. CIWA 15. IV zofran and ativan given per orders. Unable to give PO meds at this time.
--- NOTE | 2021-07-28 21:12 | PCM.RX.CS ---
Consult Pharmacy has been consulted to manage selected antiobiotic: Vancomycin Type of Consult: New start Labs: Sodium 134 mmol/L (136-145) L 07/28/21 13:45 Potassium 4.6 mmol/L (3.5-5.1) 07/28/21 13:45 Chloride 104 mmol/L (98-107) 07/28/21 13:45 Carbon Dioxide 20.0 mmol/L (21.0-32.0) L 07/28/21 13:45 Anion Gap 10 (5-15) 07/28/21 13:45 BUN 29 mg/dL (7-18) H 07/28/21 13:45 Creatinine 1.59 mg/dL (0.55-1.02) H 07/28/21 13:45 Est GFR (MDRD) Af Amer 43 mL/min (>60) L 07/28/21 13:45 Est GFR (MDRD) Non-Af 35 mL/min (>60) L 07/28/21 13:45 BUN/Creatinine Ratio 18.2 RATIO (10-20) 07/28/21 13:45 Glucose 96 mg/dL (74-106) 07/28/21 13:45 Goal Trough: 15-20 mcg/mL Pharmacy Plan for Drug Dosing: NEW START IV VANCOMYCIN Consulting Physician: Shonda Indication: Goal Trough: 15-20 SrCr: 1.56 CrCl: 37 mls/min Comments: pt received a 1250mg x1 dose in the ER 07/28/21 at 1710 Vancomcyin Dose: based on pts weight and renal function, recommend an initial dose of 1250mg q24h to start 07/29/21 at 1700. trough before the 3rd total dose Pending Level: 07/30/21 at 1630 Pharmacy Service will continue to monitor and adjust dosing as required. Follow-Up Labs: Trough Vancomycin - 07/30/21 at 1630
[2021-07-28] MEDS: 0.9% Normal Saline 1,000 ML 999 ML IV ×2 (21:29→22:30)
--- NOTE | 2021-07-28 21:54 | PCM.HOSP.N ---
Hospitalist Note Called with regards to hypotension. Patient was admitted with severe sepsis as well as alcoholic liver cirrhosis and acute alcohol withdrawal. She was recently given Ativan and her pressures dropped from 80 systolic to the 60 systolic. She was maxed out on Levophed at 30 mics. Vasopressin was added. It was noted that she was not bolused with 30 mg/kg secondary to concern with regards to her cirrhosis. Given her ongoing hypotension I completed the bolus which included another 1.5 L of IV fluids. She also started to show signs of withdrawal and given her tenuous blood pressure we did not want to continue to use Ativan as she had already demonstrated sensitivity with regards to her blood pressure and Ativan and I also wanted to avoid Precedex with the concerns for blood pressure lowering with this medication as well. I discussed the case with GI and they stated they were okay with initiation of phenobarb which was started as a p.o. taper. If the patient becomes unable to take her p.o. medications we may have to switch this to IV. If her blood pressure does not improve we may also consider utilization of albumin 25 g every 4 hours. She is already on Midrin 10 mg 3 times daily.
--- NOTE | 2021-07-28 22:30 | NURSING ---
Explained to pt need for F/C d/t strict bedrest now w/2 vasopressors running and her c/o not being able to empty her bladder while in the bed using the purewick. Regi area cleansed w/bathwipes, then cleaned w/iodine swabs. 16fr F/C placed w/out difficulty, inflated 10ml balloon and secured to Rt thigh. Pt alen all well, immediate return of gold/orange clear urine.
[2021-07-28 22:33] LABS: Lactic Acid 3.7 mmol/L (0.4-1.9)
[2021-07-28] MEDS: hydrOXYzine PAM 25 MG Capsule 50 MG PO (23:11)
[2021-07-28] MEDS: guaiFENesin 10 ML UDC (200MG/10ML) 20 ML PO (23:11)
[2021-07-28] MEDS: Phenobarbital 32.4 MG Tablet 97.2 MG PO (23:11)
[2021-07-29] VITALS (66 sets, daily range): BP systolic 64–150; BP diastolic 47–94; PULSE 66–120; RESP 14–30; TEMP 36.1–36.5; O2SAT 89–100
[2021-07-29 00:14] LABS: Hematocrit 25.7 % (37-47); Hemoglobin 8.9 g/dL (12.0-15.0)
[2021-07-29] MEDS: LORazepam 2 MG/ML Syringe IV (00:45)
[2021-07-29] MEDS: Albumin Human 25% (100 mL) 25 GM/100 ML BAG IV ×5 (00:48→23:29)
[2021-07-29 01:41] LABS: Reflex Lactate? Y
[2021-07-29] MEDS: guaiFENesin 10 ML UDC (200MG/10ML) 20 ML PO (03:08)
[2021-07-29] MEDS: hydrOXYzine PAM 25 MG Capsule 50 MG PO (03:09)
[2021-07-29] MEDS: Phenobarbital 32.4 MG Tablet 97.2 MG PO (03:09)
[2021-07-29 03:15] LABS: Lactic Acid 1.6 mmol/L (0.4-1.9)
[2021-07-29 05:55] LABS: Absolute Neutrophil Count 8.4 X10^3/uL (2.0-7.7); Basophil# 0.08 X10^3/uL; Basophil% 0.7 % (0-1); Eosinophil# 0.04 X10^3/uL; Eosinophils% 0.3 % (0-5); Hematocrit 24.5 % (37-47); Hemoglobin 8.6 g/dL (12.0-15.0); Lymphocyte % 7.7 % (19-41); Mean Corp Hgb Conc 35.1 g/dL (32-36); Mean Corpuscular Hgb 37.9 pg (27.0-32.0); Mean Corpuscular Volume 107.9 fL (81-99); Mean Platelet Vol. 10.5 fl (6.2-12.0); Monocyte# 2.22 X10^3/uL; NRBC Flagged by Analyzer 0 % (0-5); Neutrophil # 8.35 X10^3/uL (2.7-7.7); Neutrophil % 71.7 % (47-70); POSITIVE DIFFERENTIAL YES; POSITIVE MORPHOLOGY YES; Platelet Count 113 K/mm3 (150-450); RBC Distribution Width CV 20.5 % (11.6-14.6); RBC Distribution Width SD 79.5 fl (35.1-43.9); Red Blood Count 2.27 M/mm3 (4.2-5.4); White Blood Count 11.7 K/mm3 (4.4-11.0)
[2021-07-29] MEDS: 0.9% Saline Lock 10 ML Syringe IV ×2 (05:56→13:02)
[2021-07-29 06:01] LABS: Differential Indicated SCAN CRITERIA MET
[2021-07-29 06:13] LABS: ALB/GLOB Ratio 0.6 RATIO (0.9-2.4); AST(SGOT) 116 U/L (15-37); Alanine Aminotransfer ALT/SGPT 58 U/L (13-56); Albumin, Serum 2.6 g/dL (3.2-5.0); Alkaline Phosphatase 99 U/L (45-117); Anion Gap 10 (5-15); BUN 26 mg/dL (7-18); Calcium,Total 8.2 mg/dL (8.5-10.1); Chloride 107 mmol/L (98-107); Creatinine, Serum 1.18 mg/dL (0.55-1.02); EST Glomerular Filtration Rate 50 mL/min (>60); Est Glom Filt Rate - Afr Amer 60 mL/min (>60); Glucose 155 mg/dL (74-106); Potassium 4.7 mmol/L (3.5-5.1); Protein, Total 6.6 g/dL (6.4-8.2); Sodium Level 136 mmol/L (136-145)
[2021-07-29 06:14] LABS: Anisocytosis 2+; Target Cells 2+
[2021-07-29 06:23] LABS: Prothrombin Time (Protime)PT. 22.3 SECONDS (11.7-14.9)
[2021-07-29 06:24] LABS: Partial Thromboplast Time 33.6 Seconds (24.1-36.2)
--- NOTE | 2021-07-29 06:53 | CON.PCM.CC_ITS ---
Assessment & Plan Assessment/Plan (1) SBP (spontaneous bacterial peritonitis): (2) Septic shock: PLAN: RECOMMENDATIONS: 1. Proceed with intubation. 2. Once intubated, obtain and send sputum for culture. 3. Obtain arterial blood gas in [address] OG tube to facilitate medication administration. 5. Send urine culture. 6. Recheck ammonia level. 7. Start Precedex for sedation. 8. Continue octreotide, PPI therapy and albumin. 9. Continue Levophed and vasopressin to maintain hemodynamic stability. 10. Continue antimicrobials as ordered. 11. Start lactulose and rifaximin. IMPRESSIONS: 1. Decompensated alcoholic cirrhosis The patient presented to the hospital with findings concerning for SBP and decompensated cirrhosis. She did undergo a large-volume paracentesis after being evaluated by gastroenterology. Accordingly, the patient will be continued on octreotide, PPI and albumin per recommendations. There are tentative plans for upper endoscopy once the patient has been stabilized clinically. She is not a candidate for transplantation or TIPS procedure due to ongoing alcohol dependency. 2. Multifactorial shock Likely related to septic etiology secondary to possible SBP combined with hypovolemic etiology in the setting of third spacing due to alcoholic cirrhosis. Plan to continue current supportive measures including vasopressor support to maintain a mean arterial pressure at or above 65 mmHg. Continue antimicrobials as ordered. 3. Hepatic encephalopathy As noted above, will continue supportive measures. Lactulose and rifaximin will be started once OG tube has been placed. Monitor ammonia level as needed. 4. Anemia/thrombocytopenia/coagulopathy Secondary to chronic alcohol dependency and underlying liver disease. No indication for transfusion of blood products at the current time. 5. Acute kidney injury Likely prerenal in etiology in the setting of large volume paracentesis. Ischemic ATN is also a possibility. Creatinine is somewhat improved this morning. Continue to monitor urine output for now. No current indication for renal replacement therapy. 6. Chronic alcohol dependency with acute withdrawal Once intubated, the patient will be placed on Precedex. She will be continued on thiamine and folate per protocol. TIME: 50 minutes of critical care time, inclusive of procedures, was spent addressing the patient's acute hypoxemic respiratory failure, decompensated alcoholic cirrhosis, multifactorial shock, hepatic encephalopathy, acute kidney injury, review of all data and collaboration with the care team. ([id number], [id number]) HPI Consult Data Date of Consult: 07/29/21 HPI Narrative Reason for Consultation: Shock, encephalopathy HPI Narrative: The patient is a 61-year-old female, with a history as outlined below, who presented to the emergency department on July 28 at the request of her primary care provider over concerns for worsening ascites, anemia and renal insufficiency. The patient has a history of chronic alcohol dependency, alcohol withdrawal seizures, questionable COPD, chronic tobacco dependency and depressio n/schizophrenia. The patient was recently admitted to [facility] for 2 days at the end of June over concerns for acute decompensated cirrhosis. The patient did have a paracentesis performed at that time. However, the patient ultimately signed out of the hospital AMA. On presentation to the emergency department, the patient was noted to be afebrile but was otherwise hypotensive. Initial laboratory evaluation revealed a normal white blood cell count with a hemoglobin of 10.0 and platelet count of 112,000. Coagulation profile revealed a PT of 23.5 with an INR of 2.2. Ch emistry profile was notable for a sodium of 134, bicarbonate of 20 and creatinine of 1.59. Lactate was elevated at 3.5. Total bili was increased to 5.6 with an AST of 155 and ALT of 72. Alkaline phosphatase was increased to 120. Ammonia was elevated at 44. Urinalysis was positive for nitrites and leukocyte esterase. 1+ urine bacteria was noted. Toxicology screen revealed an alcohol level of 94. MRSA screen was negative. While in the emergency department, the patient was seen by gastroenterology and underwent a large-volume paracentesis to rule out SBP. She was subsequently placed on antimicrobials. The patient was also started on pentoxifylline, octreotide and a PPI infusion. Steroids were held over concerns for underlying infection. Ultimately, a central venous catheter had to be placed and the patient initiated on vasopressor support due to ongoing hemodynamic instability. The patient was admitted to the medical intensive care unit for further management. Overnight, the patient has been maintained on a combination of Levophed and vasopressin. She also appears to be experiencing acute alcohol withdrawal symptoms. The patient is currently receiving scheduled albumin. Arterial blood gas obtained this morning revealed a pH of 7.2 with a PCO2 of 43 and PO2 of 66. Discussion was undertaken with the patient's daughter this morning, who indicated that she wishes for her mother to remain a full code. Over the course of the morning hours, the patient became progressively encephalopathic with worsening hypoxemia and increased work of breathing. Therefore, the decision was made to proceed with intubation. Intubation Indication: Respiratory failure Consent was obtained from: Patient's daughter The patient was placed in the appropriate sniffing position. Preoxygenated sedation via [id number] was provided for a minimum of 3 minutes. The patient had continuous cardiac as well as pulse oximetry monitoring during the procedure. Procedure sedation was provided by the administration of 2 mg of Versed, 20 mg of etomidate and 100 mg of succinylcholine. Direct laryngoscopy was then performed using a number 3 MAC blade, which revealed a grade 1 view. A 7.5 mm endotracheal tube was visualized advancing between the cords to the level of 22 cm at the lip. The stylette was then removed and discarded. Tube placement was confirmed by fogging in the tube along with equal and bilateral breath sounds. Colorimetric change was visualized on the CO2 meter. The cuff was then inflated and the tube secured using a commercially available device. A good pulse oximetry waveform was seen on the monitor throughout the procedure. A portable chest x-ray has been ordered to confirm appropriate placement. The patient tolerated the procedure well. [facility] Medical History AA (alcohol abuse) Cirrhosis of liver COPD (chronic obstructive pulmonary disease) GERD (gastroesophageal reflux disease) Seizure Tobacco use Home Medications acetaminophen 500 mg PO Q8 PRN 08/06/20 [History Last Taken Unknown] albuterol sulfate 2 puff INHALATION Q6H PRN PRN 08/06/20 [History Last Taken 07/28/21] folic acid 1 mg PO DAILY 08/06/20 [History Last Taken 07/28/21] pyridoxine (vitamin B6) 100 mg PO DAILY 08/06/20 [History Last Taken 07/28/21] pantoprazole 40 mg PO DAILY 07/28/21 [History Last Taken 07/28/21] thiamine HCl (vitamin B1) 100 mg PO DAILY 07/28/21 [History Last Taken 07/28/21] Allergy/AdvReac Type Severity Reaction Status Date / Time Penicillins Allergy Swelling Verified 07/28/21 12:30 Family History (Updated 07/28/21 @ 20:[address] Rabia Merchant MD) Mother Heart disease Hypertension Diabetes Father Heart disease Hypertension Diabetes Surgical History (Updated 07/28/21 @ 20:[address] Rabia Merchant MD) History of surgery on arm Hx of breast implants, bilateral S/P cholecystectomy Social History (Updated 07/28/21 @ 20:[address] Rabia Merchant MD) household members: none Smoking Status: Current every day smoker tobacco type: cigarettes Smoking packs per day: 0.5 Smoking cigarettes per day: 10.0 how long ago did patient quit smoking: Ongoing 1/2 ppd since late 20s. alcohol intake: current alcohol intake frequency: 3 or more drinks per day Alcohol type: beer and hard liquor details: Several tall boys and vodka daily. substance use type: does not use ROS Review of Systems ROS Unobtainable: due to encephalopathy and due to mental condition Physical Exam Const Constitutional Narrative: Chronically ill in appearance, continuously moaning. General Appearance: uncooperative and lethargic Exam Limitations: altered mental status Nutritional Appearance: overweight HEENT normocephalic and head/scalp atraumatic Eyes PERRL Neck supple General: trachea midline Resp Effort and Inspection: tachypneic and labored Auscultation: diminished lung sounds Cardio S1 normal heart sound and S2 normal heart sound Rate: tachycardic GI Inspection: abdominal distention Palpation: ascites Percussion: fluid wave Extremity General Extremity: edema; Negative for clubbing Skin no rashes or lesions noted Neuro moves all extremities Psych Activity / Motor Behavior: restless Lab / Micro Data Result Diagrams: 07/29/21 05:35 07/29/21 05:35 Labs: Laboratory Results - last 24 hr 07/28/21 13:45: WBC 7.7, RBC 2.66 L, Hgb 10.0 L, Hct 28.0 L, MCV 105.3 H, MCH 37.6 H, MCHC 35.7, RDW Std Deviation 77.1 H, RDW Coeff of Meagan 20.5 H, Plt Count 112 L, MPV 10.6, Immature Gran % (Auto) 0.500, Neut % (Auto) 61.8, Lymph % (Auto) 13.5 L, [place] % (Auto) 21.6 H, Eos % (Auto) 1.8, Baso % (Auto) 0.8, Absolute Neuts (auto) 4.7, Absolute Lymphs (auto) 1.04, Nucleated RBC % 0, Di fferential Comment COMMENT, Anisocytosis 1+ 07/28/21 13:45: Sodium 134 L, Potassium 4.6, Chloride 104, Carbon Dioxide 20.0 L , Anion Gap 10, BUN 29 H, Creatinine 1.59 H, Estim Creat Clear Calc 36.59, Est GFR (MDRD) Af Amer 43 L, Est GFR (MDRD) Non-Af 35 L, BUN/Creatinine Ratio 18.2, Glucose 96, Calcium 8.9, Total Bilirubin 5.60 H, Direct Bilirubin 3.34 H, AST 155 H, ALT 72 H, Alkaline Phosphatase 120 H, Total Protein 7.1, Albumin 2.2 L, Globulin 4.9 H, Lipase 371 07/28/21 13:45: Ethyl Alcohol 94.0 07/28/21 13:45: Lactic Acid 3.5 H* 07/28/21 13:45: Blood Type A POSITIVE, Antibody Screen NEGATIVE 07/28/21 13:45: Phosphorus 2.7, Magnesium 1.7 07/28/21 14:32: Urine Color Izabel, Urine Clarity Sl. Cloudy, Urine pH 5.0, Ur Specific [place] 1.015, Urine Protein 30 H, Urine Glucose (UA) Normal, Urine Ket ones 5 H, Urine Occult Blood Negative, Urine Nitrite Positive H, Urine Bilirubin 3 H, Urine Urobilinogen 8 H, Ur Leukocyte Esterase 25 H, Urine RBC 0 SEEN, Urine WBC 0-5 SEEN, Ur Squamous Epith Cells 0-5 SEEN, Urine Bacteria 1+, Hyaline Casts 5-10 SEEN, Urine Mucus 0 SEEN 07/28/21 15:20: PT 23.5 H, INR 2.2 07/28/21 15:20: Ammonia 44.0 H 07/28/21 17:10: S.aureus Protein A PCR NEGATIVE, MRSA (PCR) Negative 07/28/21 18:10: Lactic Acid 3.1 H* 07/28/21 18:35: Hgb 8.9 L, Hct 25.1 L 07/28/21 21:35: Lactic Acid 3.7 H* 07/28/21 22:00: Phenobarbital < 2.1 L 07/29/21 00:05: Hgb 8.9 L, Hct 25.7 L 07/29/21 02:40: Lactic Acid 1.6 07/29/21 05:35: WBC 11.7 H, RBC 2.27 L, Hgb 8.6 L, Hct 24.5 L, MCV 107.9 H, MCH 37.9 H, MCHC 35.1, RDW Std Deviation 79.5 H, RDW Coeff of Meagan 20.5 H, Plt Count 113 L, MPV 10.5, Immature Gran % (Auto) 0.600, Neut % (Auto) 71.7 H, Lymph % (Auto) 7.7 L, [place] % (Auto) 19.0 H, Eos % (Auto) 0.3, Baso % (Auto) 0.7, Absolute Neuts (auto) 8.4 H, Absolute Lymphs (auto) 0.90, Nucleated RBC % 0, Diff Path Review February, Anisocytosis 2+, Target Cells 2+ 07/29/21 05:35: Sodium 136, Potassium 4.7, Chloride 107, Carbon Dioxide 19.0 L, Anion Gap 10, BUN 26 H, Creatinine 1.18 H, Estim Creat Clear Calc 49.30, Est GFR (MDRD) Af Amer 60, Est GFR (MDRD) Non-Af 50 L, BUN/Creatinine Ratio 22.0 H, Glu cose 155 H, Calcium 8.2 L, Total Bilirubin 7.30 H, AST 116 H, ALT 58 H, Alkaline Phosphatase 99, Total Protein 6.6, Albumin 2.6 L, Globulin 4.0, Albumin/Globulin Ratio 0.6 L 07/29/21 05:35: PT 22.3 H, INR 2.0, APTT 33.6 Micro: Microbiology 07/29/21 00:00 Stool Stool Occult Blood (ENOC) - Final Occult Blood Positive Radiology Impression Chest X-Ray 07/28/21 16:33 IMPRESSION: Right IJ central venous catheter with tip at the RA/SVC junction. Electronically Signed: Altaf Estevez MD at 18:01 EDT Tel , Service support , Charges/Coding Procedures Hospitalists Procedures: [id number] Critial Care 1st Hr
[2021-07-29 07:01] LABS: Allen Test Positive; Base Excess -9 mmol/L (-2 to +2); Bicarbonate 18.3 mmol/L (22-26); Blood Gas Specimen Type ART; FI02 31; O2 Delivery Device Venti Mask; PO2 67 mmHG (75-100); SITE R Radial; SO2 89 % (95-99); Total Carbon Dioxide 20 mmol/L; pCO2 42.9 mmHg (35-45); pH 7.24 (7.35-7.45)
--- NOTE | 2021-07-29 09:29 | PCM.PN.HOSP ---
Subjective Subjective Seen and examined. Patient is confused disoriented. She is restless. Currently on 2 vasopressors. Right CVC catheter. Admitted with hypotension, GI bleed, anemia, thrombocytopenia, ascites and kidney dysfunction. Patient has history of chronic alcohol use disorder and heavy alcohol use. History of alcohol withdrawal seizure. In ED, lactic acid was elevated. INR 2.2. Patient had 3.5 L acetic fluid removed from left lower quadrant. Patient has albumin in ED thereafter. Objective Data Objective Data Vital Signs: Vital Signs Temp Pulse Resp BP Pulse Ox 97.6 F L 114 H 30 H 147/82 H 97 07/29/21 04:00 07/29/21 08:00 07/29/21 08:00 07/29/21 08:00 07/29/21 08:00 Oxygen Flow Rate (L/min) 6 Oxygen Delivery Method Venturi Mask Weight: 190 lb 7.67 oz Body Mass Index (BMI) 28.8 Intake & Output: Intake and Output for Last 24 Hours 07/27/21 07/28/21 07/29/21 23:59 23:59 23:59 Intake Total 3410.00 / 3422.38 1457.11 / 1457.11 Output Total 400 / 800 850 / 850 Balance 3010.00 / 2622.38 607.11 / 607.11 Lab / Micro Data Result Diagrams: 07/29/21 05:35 07/29/21 05:35 Labs: Laboratory Results - last 24 hr 07/28/21 13:45: WBC 7.7, RBC 2.66 L, Hgb 10.0 L, Hct 28.0 L, MCV 105.3 H, MCH 37.6 H, MCHC 35.7, RDW Std Deviation 77.1 H, RDW Coeff of Meagan 20.5 H, Plt Count 112 L, MPV 10.6, Immature Gran % (Auto) 0.500, Neut % (Auto) 61.8, Lymph % (Auto) 13.5 L, Dunn % (Auto) 21.6 H, Eos % (Auto) 1.8, Baso % (Auto) 0.8, Absolute Neuts (auto) 4.7, Absolute Lymphs (auto) 1.04, Nucleated RBC % 0, Differential Comment COMMENT, Anisocytosis 1+ 07/28/21 13:45: Sodium 134 L, Potassium 4.6, Chloride 104, Carbon Dioxide 20.0 L, Anion Gap 10, BUN 29 H, Creatinine 1.59 H, Estim Creat Clear Calc 36.59, Est GFR (MDRD) Af Amer 43 L, Est GFR (MDRD) Non-Af 35 L, BUN/Creatinine Ratio 18.2, Glucose 96, Calcium 8.9, Total Bilirubin 5.60 H, Direct Bilirubin 3.34 H, AST 155 H, ALT 72 H, Alkaline Phosphatase 120 H, Total Protein 7.1, Albumin 2.2 L, Globulin 4.9 H, Lipase 371 07/28/21 13:45: Ethyl Alcohol 94.0 07/28/21 13:45: Lactic Acid 3.5 H* 07/28/21 13:45: Blood Type A POSITIVE, Antibody Screen NEGATIVE 07/28/21 13:45: Phosphorus 2.7, Magnesium 1.7 07/28/21 14:32: Urine Color Izabel, Urine Clarity Sl. Cloudy, Urine pH 5.0, Ur Specific [place] 1.015, Urine Protein 30 H, Urine Glucose (UA) Normal, Urine Ketones 5 H, Urine Occult Blood Negative, Urine Nitrite Positive H, Urine Bilirubin 3 H, Urine Urobilinogen 8 H, Ur Leukocyte Esterase 25 H, Urine RBC 0 SEEN, Urine WBC 0-5 SEEN, Ur Squamous Epith Cells 0-5 SEEN, Urine Bacteria 1+, Hyaline Casts 5-10 SEEN, Urine Mucus 0 SEEN 07/28/21 15:20: PT 23.5 H, INR 2.2 07/28/21 15:20: Ammonia 44.0 H 07/28/21 17:10: S.aureus Protein A PCR NEGATIVE, MRSA (PCR) Negative 07/28/21 18:10: Lactic Acid 3.1 H* 07/28/21 18:35: Hgb 8.9 L, Hct 25.1 L 07/28/21 21:35: Lactic Acid 3.7 H* 07/28/21 22:00: Phenobarbital < 2.1 L 07/29/21 00:05: Hgb 8.9 L, Hct 25.7 L 07/29/21 02:40: Lactic Acid 1.6 07/29/21 05:35: WBC 11.7 H, RBC 2.27 L, Hgb 8.6 L, Hct 24.5 L, MCV 107.9 H, MCH 37.9 H, MCHC 35.1, RDW Std Deviation 79.5 H, RDW Coeff of Meagan 20.5 H, Plt Count 113 L, MPV 10.5, Immature Gran % (Auto) 0.600, Neut % (Auto) 71.7 H, Lymph % (Auto) 7.7 L, Dunn % (Auto) 19.0 H, Eos % (Auto) 0.3, Baso % (Auto) 0.7, Absolute Neuts (auto) 8.4 H, Absolute Lymphs (auto) 0.90, Nucleated RBC % 0, Diff Path Review February, Anisocytosis 2+, Target Cells 2+ 07/29/21 05:35: Sodium 136, Potassium 4.7, Chloride 107, Carbon Dioxide 19.0 L, Anion Gap 10, BUN 26 H, Creatinine 1.18 H, Estim Creat Clear Calc 49.30, Est GFR (MDRD) Af Amer 60, Est GFR (MDRD) Non-Af 50 L, BUN/Creatinine Ratio 22.0 H, Glucose 155 H, Calcium 8.2 L, Total Bilirubin 7.30 H, AST 116 H, ALT 58 H, Alkaline Phosphatase 99, Total Protein 6.6, Albumin 2.6 L, Globulin 4.0, Albumin/Globulin Ratio 0.6 L 07/29/21 05:35: PT 22.3 H, INR 2.0, APTT 33.6 Micro: Microbiology 07/29/21 00:00 Stool Stool Occult Blood (ENOC) - Final Occult Blood Positive ABG Data ABG results: ABG 07/29/21 06:57 Specimen Type ART Sample Site R Radial pH 7.24 L Bicarbonate Actual 18.3 L Total CO2 20 Base Excess -9 L O2 Saturation 89 L O2 % 31 ABG pCO2 42.9 ABG pO2 67 L Fritz Test Positive O2 Delivery Device Venti Mask Radiography Diagnostic Testing: Radiology Impression Chest X-Ray 07/28/21 16:33 IMPRESSION: Right IJ central venous catheter with tip at the RA/SVC junction. Electronically Signed: Altaf Estevez MD at 18:01 EDT Tel , Service support , Physical Exam Narrative General: , disoriented, incomprehensible words. Lethargy HEENT: Atraumatic, PERRLA, EOMI, Normocephalic Oral: No Gingival or Mucosal Lesions/ Ulcerations Neck: Supple, No JVD, Negative Carotid Bruits Lungs: Air entry diminished in bilateral lung bases. No crepitation/rhonchi Cardiovascular: Sinus tachycardia, Normal S1, Normal S2, No murmurs Abdomen: Large volume paracentesis. Ascites. Mild ascites: Fluid leak on left lower quadrant. Non Tender, mild splenomegaly. : Urine output low, dark yellow/redness. No renal angle tenderness. No suprapubic tenderness. Extremities: Bilateral leg and thigh edema, Capillary Refill Less than 3 Seconds Skin: No rashes, No breakdown Musculoskeletal: No Tenderness to Palpation of Joints or Extremities Neurological: Cranial nerves II-XII grossly intact, DTR 2+/4 and Symmetrical, Neuro grossly intact Psych/Mental Status: Assessment & Plan Assessment/Plan (1) Septic shock: (2) SBP (spontaneous bacterial peritonitis): (3) GI bleed: QUALIFIERS: GI bleed type/associated pathology: unspecified gastrointestinal hemorrhage type Qualified Code(s): K92.2 - Gastrointestinal hemorrhage, unspecified (4) Acute kidney injury: (5) Ascites due to alcoholic cirrhosis: PLAN: The patient is a 61 y/o F recent admission at [facility] 07/20-07/22/21 leaving AMA was admitted in septic shock state with acute GI bleed and decompensated alcoholic cirrhosis 1. Septic shock secondary to suspected SBP w/ evidence of sepsis-induced organ dysfunction/tissue hypoperfusion: Patient is being admitted in ICU. On vasopressors. As the right IJ CVC catheter. On broad-spectrum antibiotic vancomycin and Zosyn. Tack Cutter and GI are comanaging patient 2. Acute GI Bleed most likely from portal hypertension, DD, but cirrhosis: On IV pressor.On IV albumin midodrine and octreotide. Plan for EGD today. 3. Decompensated cirrhosis with chronic alcohol use disorder with ascites, encephalopathy, kidney dysfunction possible HRS coagulopathy with thrombocytopenia. GI bleed: Patient has Bowser catheter. Urine output is low probably from large volume paracentesis. Maintain blood pressure. Patient on pentoxifylline as per GI recommendation. Latest discoloration factor is high. Steroid contraindicated. 4. Acute EtOH Withdrawal: Currently on vasopressors. 5. Acute kidney injury : Patient might have acute kidney injury secondary to hypoperfusion and large volume paracentesis. Maintain perfusion. Has Bowser catheter movement, monitor urine output. 6. Questionable abdominal wall cellulitis: On antibiotic. 7. Chronic COPD: Will maintain on oxygen with wean as tolerated to room air, continue ATC duonebs, PRN albuterol, HOB, IS parameters. 9. Tobacco Abuse: 10. GERD: No IV PPI 11. DVT prophylaxis: SCDs, hold any chemoprophylaxis given acute presentation as noted. 12. CODE status: Currently full code. Patient did not have power of assistant district attorney for health. Charges/Coding Visit Charges Inpatient E&M: 17453 Subs Hosp L3
--- NOTE | 2021-07-29 09:30 | NURSING ---
Pt's daughter Yokasta called in for update. Made aware that pt had only listed her daughter Lay as a personnel coordinator so unable to share information. Attempted to call pt's daughter Lay at this time and there was no answer.
--- NOTE | 2021-07-29 09:51 | NURSING ---
Pt's daughter Lay called in. Updated on pt's status. She is going to speak with her sister & aunt and call back to discuss further plan of care. Dr Flores updated.
--- NOTE | 2021-07-29 09:59 | PCM.RX.CS ---
Consult Pharmacy has been consulted to manage selected antiobiotic: Vancomycin Type of Consult: Follow-up Suspected Infection: Sepsis Prior Doses of Antibiotics Received/Current Regimen: Received 1250mg iv x 1 on 07.28.21 in ER. Labs: Sodium 136 mmol/L (136-145) 07/29/21 05:35 Potassium 4.7 mmol/L (3.5-5.1) 07/29/21 05:35 Chloride 107 mmol/L (98-107) 07/29/21 05:35 Carbon Dioxide 19.0 mmol/L (21.0-32.0) L 07/29/21 05:35 Anion Gap 10 (5-15) 07/29/21 05:35 BUN 26 mg/dL (7-18) H 07/29/21 05:35 Creatinine 1.18 mg/dL (0.55-1.02) H 07/29/21 05:35 Est GFR (MDRD) Af Amer 60 mL/min (>60) 07/29/21 05:35 Est GFR (MDRD) Non-Af 50 mL/min (>60) L 07/29/21 05:35 BUN/Creatinine Ratio 22.0 RATIO (10-20) H 07/29/21 05:35 Glucose 155 mg/dL (74-106) H 07/29/21 05:35 Microbiology: Microbiology 07/29/21 00:00 Stool Stool Occult Blood (ENOC) - Final Occult Blood Positive Weight used for dosin.4 kg Estimated Creatinine Clearance: 49ml/min Goal Trough: 15-20 mcg/mL Pharmacy Plan for Drug Dosing: Renal function improved from Cr 1.56 to Cr 1.18 with CrCl 49ml/min. Will increase dose to 750mg iv q12h. Trough level ordered for 07.30.21. Pharmacy Service will continue to monitor and adjust dosing as required. Follow-Up Labs: Trough Vancomycin - 07.30.21@1630 before 1700 dose
--- NOTE | 2021-07-29 10:37 | NURSING ---
Spoke again w/pt's daughter Lay. Proceed with all interventions as needed. Dr Flores was updated and also updated on pt's ammonia [id number].
--- NOTE | 2021-07-29 10:43 | CASEMGMT ---
SW spoke w/RN, she has not been able to reach daughter Lay Melgar who is listed on the demographics, another daughter Yokasta called in asking about pt. SW called daughter Lay Melgar([phone]), her cell phone is not working at this time. SW called pt's physcian's office, Dr. Tan, pt has Lay and a friend named Tila Alfredo listed, she also has Yokasta Herrera([phone])listed as an emergency contact, and listed as family but not daughter. SW looked through information from prior encounters at the hospital, pt has had her sister Janeth Juárez([phone] and [phone]) listed in the past as her contact lens lathe operator, has also had Tila Fuentes listed. SW called sister Janeth, she was aware pt was here in the hospital. She gave this SW the same number for Lay, and confirmed that Yokasta is also pt's daughter. LEONEL explained will reach out to family, and will ask them to speak w/her to let her know what is going on w/pt. LEONEL spoke w/RN, since SW made these calls she has spoken w/the daughter Lay. Lay plans to updated daughter Yokasta and sister Janeth. LEONEL remains available for any social service needs. KOFI Matamoros
--- NOTE | 2021-07-29 11:27 | NURSING ---
1128- Dr Flores at head of bed to intubate. 2mg Versed IV given. 20mg Etomidate IV given. 1129- Precedex GTT initiated per order, verified w/L.KO Riddle 1130- (+) color change, B/L breath sounds, #7.5 ETT, 22cm at the lip. PSN bagging. 1132- 100mg Succ IV given. Versed 2mg IV given.
[2021-07-29] MEDS: Midazolam 2 MG/2 ML Syringe IV ×2 (11:28→11:32)
[2021-07-29] MEDS: Etomidate 20 MG/10 ML Vial IV (11:28)
--- NOTE | 2021-07-29 11:53 | RAD_ITS ---
STUDY: X-RAY CHEST REASON FOR EXAM: Female, 61 years old. intubation ogt -- portable TECHNIQUE: AP COMPARISON: Yesterday FINDINGS: Bilateral breast implants with capsular calcification. Endotracheal tube present with the tip terminating 4 cm above the isidra. Esophagogastric tube extends the left upper abdomen/stomach. Right jugular central venous catheter stable. Operative changes of the proximal right humerus stable. Patchy bilateral pulmonary infiltrates involving the mid and lower lung zones are new since the prior study. There is no demonstrated pleural abnormality. Normal size heart. Normal mediastinum and adamaris. Normal visualized pulmonary arteries. There is atherosclerotic calcification of the aortic arch with tortuosity. No acute bony process. There is no demonstrated abnormality of the visualized soft tissue structures of the upper abdomen. RAD/Chest 1 View (Portable) IMPRESSION: 1. Endotracheal and esophagogastric tubes, as above. 2. Developing bilateral pulmonary infiltrates may represent pneumonia or pulmonary edema or subsegmental atelectasis. Electronically Signed: Armando Pérez MD ([facility]) at 12:21 EDT , Service support ,
[2021-07-29 12:40] LABS: Pathologist Review Reviewed
[2021-07-29] MEDS: rifAXIMin 550 MG Tablet PO (13:01)
[2021-07-29] MEDS: Lactulose 20 GM/30 ML UDC PO (13:01)
--- NOTE | 2021-07-29 13:13 | CHAPLAIN ---
Type of Pastoral Visit ___ Initial Visit ___ Follow-up Visit ___ On-call Visit ___ General Patient Visit ___ Spiritual Assessment ___ Family Conference ___ Bereavement ___ Rapid Response ___ Code Blue _x__ Other (describe below) Pastoral Care Referral From ___ Patient _x__ Family ___ Nurse ___ Physician ___ Joinery Setter Out ___ Office Assistant Receptionist ___ Other (describe below) Sacrament/Intervention ___ Active listening ___ Anointing ___ Rastafari ___ Bereavement ___ Communion ___ Romina exploration ___ ___ Life review _x__ Prayer ___ Reconciliation ___ Sacrament of Sick ___ Supportive presence ___ Wedding ___ Other (describe below) Pastoral Comments came to patient's room right after pt had been intubated; left a calling card for family when they come to visit; stood outside door to offer prayers for pt; offered support to staff
--- NOTE | 2021-07-29 13:18 | CASEMGMT ---
RN CM Assessment Patient on Vent and not appropriate for IA at this time. Called patient Dtr Lay Melgar [phone]. Dtr answered, introduced role of RN CM to patient dtr. Patient is unable to participate in RNCM assessment, however dtr Lay is able and agreeable to participate in RN CM Assessment. Care providers, pharmacy, and demographics verified. Admit Dx: Liver Failure, Anemia Re-Admit: No Barriers/Issues: Patient lives alone in a Trailer, H/o ETOH abuse. Per dtr- patient falls frequently getting black eyes and has dtr has been trying to get her to move in with her Aunt whom is on [place] housing as is patient. States patient can even bring her dogs to live with the patient's sister Janeth (Lay's aunt). States patient refuses everything- says no. Has a Rollator but states she doesn't need it. Won't f/u or see any doctors. Gets transportation through [facility] but will call and cancel them to appointments. Believes neighbor Salima took her to her PCP Dr Tan whom advised her to come into hospital. Patient Dtr Yokasta, Dtr Lay, or neighbor Salima used to take her to go grocery shopping but patient more recently has not wanted to go out of the house and Dtr Lay and her , neighbor Salima, or patient friend has been assisting with grocery shopping. PCP: Priyank Tan Specialists: Patient is supposed to see a GI doctor, a provider for her memory as patient is forgetful and zones off, Seen by Psych and counselor at [facility]. Preferred Pharmacy: [facility] Insurance: [facility] CP Rx Benefit: Yes LNOK: Dtr Lay Melgar #[phone], Dtr Yokasta Herrera #[phone] (Both live in [facility]), Sister Janeth Juárez #[phone] LW/HPOA: None. Per Dtr Lay has bene wanting to have patient get AD completed. Lay states that she knows everything medically with patient and is the one that helps her. Lay informed Detail Manager at [facility] can assist with completion when patient mentation is oriented. Aware patient can return as an outpatient to complete at a later time and aware can provide AD information with rack card at a later time when feasible. Living Arrangements: Lives alone in a trailer with a ramp in front of home- ramp boards breaking and landlord will not fix them. ADL?s: Independent with ambulation and ADLs. Has a Rollator but does not think she needs it. Multiple falls per Dtr with black eyes and bruises. Transportation: Family, Neighbor, Friend. DME: Rollator HHC: None SNF: None Goal: TBD. Patient refuses help in the home such as HH, refuses to go to Independent/assisted living, refuses to move in with her sister Janeth. Non-compliant with medications (does not take them), Non-compliant with f/u. DC PLAN: TBD
[2021-07-29 14:26] LABS: Base Excess -10 mmol/L (-2 to +2); Bicarbonate 16.9 mmol/L (22-26); Blood Gas Specimen Type ART; FI02 50; Mode AC; PEEP 5; PO2 68 mmHG (75-100); RR 14; SITE Art Line; SO2 91 % (95-99); Total Carbon Dioxide 18 mmol/L; Vt 400; pCO2 34.8 mmHg (35-45); pH 7.29 (7.35-7.45)
[2021-07-29] MEDS: Midodrine HCl 5 MG Tablet 10 MG GT (18:28)
[2021-07-29] MEDS: Thiamine Hydrochloride 100 MG Tablet GT (18:28)
[2021-07-29] MEDS: CHLORHEXIDINE GLUC 2% CLOTH 1 EACH TOWELETTE TOPICAL (18:47)
[2021-07-29] MEDS: Lactulose 20 GM/30 ML UDC GT (21:41)
[2021-07-29] MEDS: rifAXIMin 550 MG Tablet GT (21:41)
--- NOTE | 2021-07-29 21:46 | EX.PCM.PN.GI ---
Subjective Subjective The patient is still intubated and sedated. She is actually doing a lot better. She is off of vasopressin and only on a small amount of Levophed. She is +1.5 L positive. Objective Data Objective Data Vital Signs: Vital Signs Temp Pulse Resp BP Pulse Ox 97.4 F L 70 17 106/52 L 95 07/29/21 20:00 07/29/21 21:00 07/29/21 21:00 07/29/21 21:00 07/29/21 21:00 Oxygen Flow Rate (L/min) 6 Oxygen Delivery Method Mechanical Ventilator Weight: 190 lb 7.67 oz Body Mass Index (BMI) 28.8 Intake & Output: Intake and Output for Last 24 Hours 07/27/21 07/28/21 07/29/21 23:59 23:59 23:59 Intake Total 3410.00 / 3422.38 2995.40 / 2995.40 Output Total 400 / 800 1285 / 1285 Balance 3010.00 / 2622.38 1710.40 / 1710.40 Lab / Micro Data Result Diagrams: 07/29/21 05:35 07/29/21 05:35 Labs: Laboratory Results - last 24 hr 07/28/21 21:35: Lactic Acid 3.7 H* 07/28/21 22:00: Phenobarbital < 2.1 L 07/29/21 00:05: Hgb 8.9 L, Hct 25.7 L 07/29/21 02:40: Lactic Acid 1.6 07/29/21 05:35: WBC 11.7 H, RBC 2.27 L, Hgb 8.6 L, Hct 24.5 L, MCV 107.9 H, MCH 37.9 H, MCHC 35.1, RDW Std Deviation 79.5 H, RDW Coeff of Meagan 20.5 H, Plt Count 113 L, MPV 10.5, Immature Gran % (Auto) 0.600, Neut % (Auto) 71.7 H, Lymph % (Auto) 7.7 L, [place] % (Auto) 19.0 H, Eos % (Auto) 0.3, Baso % (Auto) 0.7, Absolute Neuts (auto) 8.4 H, Absolute Lymphs (auto) 0.90, Nucleated RBC % 0, Diff Path Review Reviewed, Anisocytosis 2+, Target Cells 2+ 10/06/21 05:35: Sodium 136, Potassium 4.7, Chloride 107, Carbon Dioxide 19.0 L, Anion Gap 10, BUN 26 H, Creatinine 1.18 H, Estim Creat Clear Calc 49.30, Est GFR (MDRD) Af Amer 60, Est GFR (MDRD) Non-Af 50 L, BUN/Creatinine Ratio 22.0 H, Glucose 155 H, Calcium 8.2 L, Total Bilirubin 7.30 H, AST 116 H, ALT 58 H, Alkaline Phosphatase 99, Total Protein 6.6, Albumin 2.6 L, Globulin 4.0, Albumin/Globulin Ratio 0.6 L 07/29/21 05:35: PT 22.3 H, INR 2.0, APTT 33.6 07/29/21 09:20: Ammonia 112.0 H Micro: Microbiology 07/28/21 17:10 Aspirate - Abdominal Gram Stain - Final 07/28/21 17:10 Aspirate - Abdominal Wound Culture - Preliminary No growth-Final to follow 07/29/21 00:00 Stool Stool Occult Blood (ENOC) - Final Occult Blood Positive ABG Data ABG results: ABG 07/29/21 07/29/21 06:57 14:19 Specimen Type ART ART Sample Site R Radial Art Line pH 7.24 L 7.29 L Bicarbonate Actual 18.3 L 16.9 L Total CO2 20 18 Base Excess -9 L -10 L O2 Saturation 89 L 91 L O2 % 31 50 ABG pCO2 42.9 34.8 L ABG pO2 67 L 68 L Fritz Test Positive N/A Respiration Rate 14 O2 Delivery Device Venti Mask Vent Mode AC Tidal Volume 400 POC PEEP 5 Radiography Diagnostic Testing: Radiology Impression Chest X-Ray 07/29/21 11:53 IMPRESSION: 1. Endotracheal and esophagogastric tubes, as above. 2. Developing bilateral pulmonary infiltrates may represent pneumonia or pulmonary edema or subsegmental atelectasis. Electronically Signed: Armando Pérez MD ([place]) at 12:21 EDT , Service support , Physical Exam Const no apparent distress Constitutional Narrative: Debated and sedated HEENT hearing grossly normal bilaterally Head and Scalp: normal to inspection Face and Sinus: face symmetric Nose: external nose normal Mouth: oral and palatal mucosa normal Eyes Eyes Narrative: Jaundice General Eye: normal appearance of both eyes Sclera: sclera abnormal Neck full ROM General: normal visual inspection Lymph Lymphatic: no lymphadenopathy noted Chest inspection of chest normal and palpation of chest normal Chest: symmetrical chest wall rise Resp normal respiratory effort Effort and Inspection: able to speak in complete sentences Cardio regular rate GI non-distended Percussion: fluid wave Rectal Exam: deferred Neuro Speech: speech normal Gait (Neuro): normal gait Assessment & Plan Assessment/Plan (1) GI bleed: QUALIFIERS: GI bleed type/associated pathology: unspecified gastrointestinal hemorrhage type Qualified Code(s): K92.2 - Gastrointestinal hemorrhage, unspecified PLAN: She did have a drop in her hemoglobin. She may require an upper endoscopy. We will watch her hemoglobin and see if it levels off or continues to trend down. Continue PPI drip and octreotide drip. (2) SBP (spontaneous bacterial peritonitis): PLAN: She is on antibiotic therapy for peritonitis. Her bicarbonate is still low and her white count has increased. Hopefully this is only reactive leukocytosis. (3) Septic shock: PLAN: We are weaning off of pressor therapy which is a good sign and her kidney function is improving. This means that likely she had just prerenal azotemia and not hepatorenal syndrome type I or II (4) Alcoholic hepatitis: PLAN: Her bilirubin is increasing which is increased her Madre score from 52-72. This carries a 50% mortality in 30 days if there continues to be no improvement of her acute alcoholic hepatitis. She is not a candidate for steroids at this time. I will put her on pentoxifylline 400 mg 3 times daily. (5) Ascites due to alcoholic cirrhosis: PLAN: She is status post removal of 3.5 to 4 L of cloudy and serosanguineous fluid. She is getting albumin, midodrine and a vasopressor. This is a treatment for hepatorenal syndrome however it also significantly helps mesenteric vasodilation leading to worsening cirrhosis. (6) Hyperammonemia: PLAN: Type C hepatic encephalopathy: cirrhosis and portal hypertension. She needs to be on lactulose which is a sugar that inhibits the production of ammonia in the colon and the small bowel. She should be given as every 4-6 hours to try to treat an ammonia level to less than 40. She should also be on a nonabsorbable antibiotic such as Xifaxan 550 mg twice a day to stop the production of ammonia from gut bacteria in the colon. Charges/Coding Visit Charges Inpatient E&M: 43913 Subs Hosp L3
[2021-07-30] VITALS (75 sets, daily range): BP systolic 87–118; BP diastolic 40–96; PULSE 63–78; RESP 14–22; TEMP 36.1–36.6; O2SAT 92–97
[2021-07-30] MEDS: Albumin Human 25% (100 mL) 25 GM/100 ML BAG IV ×2 (03:42→06:24)
[2021-07-30 04:40] LABS: Absolute Neutrophil Count 4.3 X10^3/uL (2.0-7.7); Basophil# 0.07 X10^3/uL; Basophil% 1.1 % (0-1); Eosinophil# 0.31 X10^3/uL; Eosinophils% 4.8 % (0-5); Hematocrit 23.6 % (37-47); Lymphocyte % 13.9 % (19-41); Mean Corp Hgb Conc 33.9 g/dL (32-36); Mean Corpuscular Hgb 37.4 pg (27.0-32.0); Mean Corpuscular Volume 110.3 fL (81-99); Mean Platelet Vol. 10.2 fl (6.2-12.0); Monocyte# 0.89 X10^3/uL; Monocyte% 13.8 % (0-10); NRBC Flagged by Analyzer 0 % (0-5); Neutrophil # 4.27 X10^3/uL (2.7-7.7); Neutrophil % 66.1 % (47-70); POSITIVE COUNT YES; POSITIVE MORPHOLOGY YES; Platelet Count 88 K/mm3 (150-450); RBC Distribution Width CV 19.9 % (11.6-14.6); RBC Distribution Width SD 80.6 fl (35.1-43.9); Red Blood Count 2.14 M/mm3 (4.2-5.4); White Blood Count 6.5 K/mm3 (4.4-11.0)
[2021-07-30 04:54] LABS: Differential Indicated SCAN CRITERIA MET
[2021-07-30 04:59] LABS: ALB/GLOB Ratio 1.1 RATIO (0.9-2.4); AST(SGOT) 95 U/L (15-37); Alanine Aminotransfer ALT/SGPT 46 U/L (13-56); Albumin, Serum 3.4 g/dL (3.2-5.0); Alkaline Phosphatase 76 U/L (45-117); Anion Gap 7 (5-15); BUN 23 mg/dL (7-18); BUN/Creat Ratio 23.9 RATIO (10-20); Calcium,Total 8.5 mg/dL (8.5-10.1); Chloride 109 mmol/L (98-107); Creatinine, Serum 0.96 mg/dL (0.55-1.02); EST Glomerular Filtration Rate 63 mL/min (>60); Est Glom Filt Rate - Afr Amer 76 mL/min (>60); Globulin 3.2 g/dL (2.2-4.2); Glucose 147 mg/dL (74-106); Potassium 3.7 mmol/L (3.5-5.1); Protein, Total 6.6 g/dL (6.4-8.2); Sodium Level 136 mmol/L (136-145)
--- NOTE | 2021-07-30 05:34 | PCM.PN.INT ---
Assessment & Plan Assessment/Plan (1) SBP (spontaneous bacterial peritonitis): (2) Septic shock: PLAN: RECOMMENDATIONS: 1. Continue to wean FiO2 to maintain oxygen saturations at or above 90%. 2. Continue Levophed to maintain mean arterial pressure at or above 65 mmHg. 3. Okay to discontinue scheduled albumin. 4. Continue lactulose and rifaximin. 5. Continue octreotide and PPI therapy. 6. Continue antimicrobials as ordered. IMPRESSIONS: 1. Decompensated alcoholic cirrhosis The patient presented to the hospital with findings concerning for SBP and decompensated cirrhosis. She did undergo a paracentesis after being evaluated by gastroenterology. Accordingly, the patient will be continued on octreotide and PPI per recommendations. There are tentative plans for upper endoscopy once the patient has been stabilized clinically. She is not a candidate for transplantation or TIPS procedure due to ongoing alcohol dependency. 2. Multifactorial shock Likely related to septic etiology secondary to possible SBP combined with hypovolemic etiology in the setting of third spacing due to alcoholic cirrhosis. Plan to continue current supportive measures including vasopressor support to maintain a mean arterial pressure at or above 65 mmHg. Continue antimicrobials as ordered. 3. Hepatic encephalopathy As noted above, will continue supportive measures. Lactulose and rifaximin will be continued. Monitor ammonia level as needed. 4. Anemia/thrombocytopenia/coagulopathy Secondary to chronic alcohol dependency and underlying liver disease. No indication for transfusion of blood products at the current time. 5. Acute kidney injury Resolved. Likely prerenal in etiology in the setting of large volume paracentesis. Ischemic ATN is also a possibility. Continue to monitor urine output for now. No current indication for renal replacement therapy. 6. Chronic alcohol dependency with acute withdrawal Plan continue Precedex along with thiamine and folate per protocol. TIME: 34 minutes of critical care time, inclusive of procedures, was spent addressing the patient's acute hypoxemic respiratory failure, decompensated alcoholic cirrhosis, multifactorial shock, hepatic encephalopathy, acute kidney injury, review of all data and collaboration with the care team. ([id number]) Subjective Subjective The patient was seen and examined at the bedside this morning. Events from the last 24 hours have been reviewed. The patient is currently afebrile. Although the patient has been weaned from vasopressin, she remains on Levophed at 10 mcg/min to maintain hemodynamic stability. The patient is currently sedated on Precedex and fentanyl. She remains on assist control mode of mechanical ventilation with an FiO2 requirement of 40% and PEEP of 5. She is currently documented to be overall net +5.5 L for the hospital admission. The patient remains on octreotide infusion, PPI therapy and antimicrobials. Hemoglobin is down to 8.0 g/dL this morning. Platelet count is also down to 88,000. Creatinine is within normal limits. Total bili is down to 6.1. Ammonia remains elevated at 126. Objective Data Objective Data The patient's most recent lab work, culture data and imaging studies have all been personally reviewed. Blood cultures are pending. Abdominal aspirate is pending. Sputum culture is pending. Stool for occult blood was positive. Vital Signs: Vital Signs Temp Pulse Resp BP Pulse Ox 98 F 69 17 101/46 L 95 07/30/21 04:00 07/30/21 05:15 07/30/21 05:15 07/30/21 05:15 07/30/21 05:15 Oxygen Flow Rate (L/min) 6 Oxygen Delivery Method Mechanical Ventilator Weight: 86.3 kg Body Mass Index (BMI) 28.8 Intake & Output: Intake and Output for Last 24 Hours 07/28/21 07/29/21 07/30/21 23:59 23:59 23:59 Intake Total 3410.00 / 3422.38 3371.99 / 3458.33 394.31 / 394.31 Output Total 400 / 800 1285 / 1285 60 / 60 Balance 3010.00 / 2622.38 2086.99 / 2173.33 334.31 / 334.31 Lab / Micro Data Attestation: I reviewed the patient's lab results. Result Diagrams: 07/30/21 04:30 07/30/21 04:30 Labs: Laboratory Results - last 24 hr 07/29/21 05:35: WBC 11.7 H, RBC 2.27 L, Hgb 8.6 L, Hct 24.5 L, MCV 107.9 H, MCH 37.9 H, MCHC 35.1, RDW Std Deviation 79.5 H, RDW Coeff of Meagan 20.5 H, Plt Count 113 L, MPV 10.5, Immature Gran % (Auto) 0.600, Neut % (Auto) 71.7 H, Lymph % (Auto) 7.7 L, [place] % (Auto) 19.0 H, Eos % (Auto) 0.3, Baso % (Auto) 0.7, Absolute Neuts (auto) 8.4 H, Absolute Lymphs (auto) 0.90, Nucleated RBC % 0, Diff Path Review Reviewed, Anisocytosis 2+, Target Cells 2+ 07/29/21 05:35: Sodium 136, Potassium 4.7, Chloride 107, Carbon Dioxide 19.0 L, Anion Gap 10, BUN 26 H, Creatinine 1.18 H, Estim Creat Clear Calc 49.30, Est GFR (MDRD) Af Amer 60, Est GFR (MDRD) Non-Af 50 L, BUN/Creatinine Ratio 22.0 H, Glucose 155 H, Calcium 8.2 L, Total Bilirubin 7.30 H, AST 116 H, ALT 58 H, Alkaline Phosphatase 99, Total Protein 6.6, Albumin 2.6 L, Globulin 4.0, Albumin/Globulin Ratio 0.6 L 07/29/21 05:35: PT 22.3 H, INR 2.0, APTT 33.6 07/29/21 09:20: Ammonia 112.0 H 07/30/21 04:30: WBC 6.5, RBC 2.14 L, Hgb 8.0 L, Hct 23.6 L, MCV 110.3 H, MCH 37.4 H, MCHC 33.9, RDW Std Deviation 80.6 H, RDW Coeff of Meagan 19.9 H, Plt Count 88 L, MPV 10.2, Immature Gran % (Auto) 0.300, Neut % (Auto) 66.1, Lymph % (Auto) 13.9 L, [place] % (Auto) 13.8 H, Eos % (Auto) 4.8, Baso % (Auto) 1.1 H, Absolute Neuts (auto) 4.3, Absolute Lymphs (auto) 0.90, Nucleated RBC % 0 07/30/21 04:30: Sodium 136, Potassium 3.7, Chloride 109 H, Carbon Dioxide 20.0 L, Anion Gap 7, BUN 23 H, Creatinine 0.96, Estim Creat Clear Calc 60.60, Est GFR (MDRD) Af Amer 76, Est GFR (MDRD) Non-Af 63, BUN/Creatinine Ratio 23.9 H, Glucose 147 H, Calcium 8.5, Total Bilirubin 6.10 H, AST 95 H, ALT 46, Alkaline Phosphatase 76, Total Protein 6.6, Albumin 3.4, Globulin 3.2, Albumin/Globulin Ratio 1.1 07/30/21 04:30: Ammonia 126.0 H Micro: Microbiology 07/28/21 17:10 Aspirate - Abdominal Gram Stain - Final 07/28/21 17:10 Aspirate - Abdominal Wound Culture - Preliminary No growth-Final to follow 07/29/21 00:00 Stool Stool Occult Blood (ENOC) - Final Occult Blood Positive ABG Data ABG results: ABG 07/29/21 07/29/21 06:57 14:19 Specimen Type ART ART Sample Site R Radial Art Line pH 7.24 L 7.29 L Bicarbonate Actual 18.3 L 16.9 L Total CO2 20 18 Base Excess -9 L -10 L O2 Saturation 89 L 91 L O2 % 31 50 ABG pCO2 42.9 34.8 L ABG pO2 67 L 68 L Fritz Test Positive N/A Respiration Rate 14 O2 Delivery Device Venti Mask Vent Mode AC Tidal Volume 400 POC PEEP 5 Radiography Diagnostic Testing: Radiology Impression Chest X-Ray 07/29/21 11:53 IMPRESSION: 1. Endotracheal and esophagogastric tubes, as above. 2. Developing bilateral pulmonary infiltrates may represent pneumonia or pulmonary edema or subsegmental atelectasis. Electronically Signed: Armando Pérez MD ([place]) at 12:21 EDT , Service support , Physical Exam Const Constitutional Narrative: Jaundiced in appearance General Appearance: comfortable, intubated and patient mechanically ventilated HEENT normocephalic and head/scalp atraumatic Mouth: endotracheal tube in place and OG tube in place Eyes PERRL Neck supple General: trachea midline Resp Auscultation: wheezes and diminished lung sounds; Negative for rales or rhonchi Cardio regular rate and regular rhythm GI Inspection: abdominal distention Palpation: ascites Percussion: fluid wave Extremity General Extremity: edema; Negative for clubbing Skin no rashes or lesions noted Neuro Sensorium / Orientation: sedated on vent Charges/Coding Procedures Hospitalists Procedures: [id number] Critial Care 1st Hr
[2021-07-30] MEDS: TITRATION PARAMETER CHANGE 1 EACH IV ×2 (05:59→10:56)
[2021-07-30 07:11] LABS: Anisocytosis 3+; Differential Comment SCANNED; Hypochromasia 2+; Macrocytosis 3+; Platelet Estimate SLT DEC (ADEQ)
[2021-07-30] MEDS: Lactulose 20 GM/30 ML UDC GT ×4 (07:30→18:39)
[2021-07-30] MEDS: Midodrine HCl 5 MG Tablet 10 MG GT ×3 (08:00→18:36)
[2021-07-30 09:19] LABS: AFP, Tumor Marker 1.8 ng/mL (0.0-8.3)
--- NOTE | 2021-07-30 09:40 | PN.HOSP_ITS ---
Subjective Subjective Seen and examined. Patient was intubated yesterday.Currently on Levophed. Weaned off vasopressin. On Precedex and fentanyl drip.On assist control mechanical ventilator.FiO2 40%.On octreotide drip, PPI. Objective Data Objective Data Vital Signs: Vital Signs Temp Pulse Resp BP Pulse Ox 98 F 68 17 97/45 L 97 07/30/21 04:00 07/30/21 07:14 07/30/21 07:14 07/30/21 07:00 07/30/21 07:14 Oxygen Flow Rate (L/min) 6 Oxygen Delivery Method Mechanical Ventilator Weight: 190 lb 4.143 oz Body Mass Index (BMI) 28.8 Intake & Output: Intake and Output for Last 24 Hours 07/28/21 07/29/21 07/30/21 23:59 23:59 23:59 Intake Total 3410.00 / 3422.38 3371.99 / 3458.33 540.81 / 540.81 Output Total 400 / 800 1285 / 1285 60 / 60 Balance 3010.00 / 2622.38 2086.99 / 2173.33 480.81 / 480.81 Lab / Micro Data Result Diagrams: 07/30/21 04:30 07/30/21 04:30 Labs: Laboratory Results - last 24 hr 07/28/21 18:10: Tumor Marker AFP 1.8 07/29/21 05:35: Diff Path Review Reviewed 07/29/21 09:20: Ammonia 112.0 H 07/30/21 04:30: WBC 6.5, RBC 2.14 L, Hgb 8.0 L, Hct 23.6 L, MCV 110.3 H, MCH 37.4 H, MCHC 33.9, RDW Std Deviation 80.6 H, RDW Coeff of Meagan 19.9 H, Plt Count 88 L, MPV 10.2, Immature Gran % (Auto) 0.300, Neut % (Auto) 66.1, Lymph % (Auto) 13.9 L, [place] % (Auto) 13.8 H, Eos % (Auto) 4.8, Baso % (Auto) 1.1 H, Absolute Neuts (auto) 4.3, Absolute Lymphs (auto) 0.90, Nucleated RBC % 0, Differential Comment SCANNED, Platelet Estimate SLT DEC, Hypochromasia 2+, Anisocytosis 3+, Macrocytosis 3+ 07/30/21 04:30: Sodium 136, Potassium 3.7, Chloride 109 H, Carbon Dioxide 20.0 L , Anion Gap 7, BUN 23 H, Creatinine 0.96, Estim Creat Clear Calc 60.60, Est GFR (MDRD) Af Amer 76, Est GFR (MDRD) Non-Af 63, BUN/Creatinine Ratio 23.9 H, Glucose 147 H, Calcium 8.5, Total Bilirubin 6.10 H, AST 95 H, ALT 46, Alkaline Phosphatase 76, Total Protein 6.6, Albumin 3.4, Globulin 3.2, Albumin/Globulin Ratio 1.1 07/30/21 04:30: Ammonia 126.0 H Micro: Microbiology 07/28/21 13:53 Blood Culture (Wb) - Anticubital Right Blood Culture - Preliminary No growth in 48 hours. 07/28/21 13:45 Blood Culture (Wb) - Anticubital Left Blood Culture - Preliminary No growth in 48 hours. 07/28/21 17:10 Aspirate - Abdominal Gram Stain - Final 07/28/21 17:10 Aspirate - Abdominal Wound Culture - Preliminary No growth-Final to follow 07/29/21 00:00 Stool Stool Occult Blood (ENOC) - Final Occult Blood Positive ABG Data ABG results: ABG 07/29/21 14:19 Specimen Type ART Sample Site Art Line pH 7.29 L Bicarbonate Actual 16.9 L Total CO2 18 Base Excess -10 L O2 Saturation 91 L O2 % 50 ABG pCO2 34.8 L ABG pO2 68 L Fritz Test N/A Respiration Rate 14 Vent Mode AC Tidal Volume 400 POC PEEP 5 Radiography Diagnostic Testing: Radiology Impression Chest X-Ray 07/29/21 11:53 IMPRESSION: 1. Endotracheal and esophagogastric tubes, as above. 2. Developing bilateral pulmonary infiltrates may represent pneumonia or pulmonary edema or subsegmental atelectasis. Electronically Signed: Armando Pérez MD ([place]) at 12:21 EDT , Service support , Physical Exam Narrative General: Sedated,On Precedex and Fentanyl drip. HEENT: Atraumatic, PERRLA, EOMI, Normocephalic Oral: ET and OG tube. Neck: Supple, No JVD, Negative Carotid Bruits Lungs: Air entry diminished in bilateral lung bases. No crepitation/rhonchi Cardiovascular: Sinus rhythm, Normal S1, Normal S2, No murmurs Abdomen: Mild ascites: Fluid leak on left lower quadrant. Non Tender, mild splenomegaly. : Urine output About 500 mm, dark yellow. No renal angle tenderness. No suprapubic tenderness. Extremities: Bilateral leg and thigh edema, Capillary Refill Less than 3 Seconds Skin: No rashes, No breakdown Musculoskeletal: No Tenderness to Palpation of Joints or Extremities Neurological: Cranial nerves II-XII grossly intact, DTR 2+/4 and Symmetrical, Neuro grossly intact Psych/Mental Status: Sedated Assessment & Plan Assessment/Plan (1) Septic shock: (2) SBP (spontaneous bacterial peritonitis): (3) GI bleed: QUALIFIERS: GI bleed type/associated pathology: unspecified gastrointestinal hemorrhage type Qualified Code(s): K92.2 - Gastrointestinal hemorrhage, unspecified (4) Acute kidney injury: (5) Ascites due to alcoholic cirrhosis: PLAN: The patient is a 61 y/o F recent admission at [facility] 07/20- 07/22/21 leaving AMA was admitted in septic shock state with acute GI bleed and decompensated alcoholic cirrhosis 1. Septic shock secondary to suspected SBP w/ evidence of sepsis-induced organ dysfunction/tissue hypoperfusion: Patient is being admitted in ICU. On vasopressors. As the right IJ CVC catheter. Was a started on broad-spectrum antibiotic vancomycin and Zosyn. Garnetter and GI are comanaging patient 07/30:Patient is intubated.On fentanyl And Precedex drip. Slight decrease in total bili . Slight decrease in total bili. And and AST.Serum magnesium phosphorus level normal.On IV ceftriaxone andVancomycin 2. Acute GI Bleed most likely from portal hypertension, DD, but cirrhosis: On IV pressor.On IV albumin midodrine and octreotide. 07/30: PPI and octreotide drip. 3. Decompensated cirrhosis with chronic alcohol use disorder with ascites, encephalopathy, kidney dysfunction possible HRS coagulopathy with thrombocytopenia. GI bleed: Patient has Bowser catheter. Urine output is low p robably from large volume paracentesis. Maintain blood pressure. Patient on pentoxifylline as per GI recommendation. Madyuliety's Discrimination factor is high. Steroid contraindicated. 4. Acute EtOH Withdrawal: Currently on vasopressors. 5. Acute kidney injury : Patient might have acute kidney injury secondary to hypoperfusion and large volume paracentesis. Maintain perfusion. Has Bowser cat heter movement, monitor urine output. 6. Questionable abdominal wall cellulitis: On antibiotic. 7. Chronic COPD: Will maintain on oxygen with wean as tolerated to room air, continue ATC duonebs, PRN albuterol, HOB, IS parameters. 9. Tobacco Abuse: 10. GERD: No IV PPI 11. DVT prophylaxis: SCDs, hold any chemoprophylaxis given acute presentation as noted. 12. CODE status: Currently full code. 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 Clinical Impression(s) from Imaging Studies Chest X-Ray 07/28/21 16:33 IMPRESSION: Right IJ central venous catheter with tip at the RA/SVC junction. Electronically Signed: Altaf Estevez MD at 18:01 EDT Tel , Service support , Chest X-Ray 07/29/21 11:53 IMPRESSION: 1. Endotracheal and esophagogastric tubes, as above. 2. Developing bilateral pulmonary infiltrates may represent pneumonia or pulmonary edema or subsegmental atelectasis. Microbiology Past 72 Hours 07/28/21 13:53 Blood Culture (Wb) - Anticubital Right Blood Culture - Preliminary No growth in 48 hours. 07/28/21 13:45 Blood Culture (Wb) - Anticubital Left Blood Culture - Preliminary No growth in 48 hours. 07/28/21 17:10 Aspirate - Abdominal Gram Stain - Final 07/28/21 17:10 Aspirate - Abdominal Wound Culture - Preliminary No growth-Final to follow 07/29/21 00:00 Stool Stool Occult Blood (ENOC) - Final Occult Blood Positive Active Medications Al Hydroxide/Mg Hydroxide (Mag Hydrox/Al Hydrox/Simeth 30 Ml Udc) 30 ml GT Q6H PRN PRN PRN Reason: Gastric Burning Albuterol Sulfate (Albuterol 2.5 Mg/3 Ml Vial.Neb.) 2.5 mg INHALATION Q2H PRN P RN PRN Reason: Dyspnea, wheezing Chlorhexidine Gluconate (Chlorhexidine Gluc 2% Cloth 1 Each Towelette) 1 each TOPICAL DAILY [facility] Last Admin: 07/29/21 18:47 Dose: 1 each Documented by: Folic Acid (Folic Acid 1 Mg Tablet) 1 mg GT BREAKFAST [facility] Stop: 08/01/21 08:01 Guaifenesin (Guaifenesin 10 Ml Udc (200mg/10ml)) 20 ml GT Q4H PRN PRN PRN Reason: COUGH Hydralazine HCl (Hydralazine 20 Mg/Ml Vial) 10 mg IV Q4H PRN PRN PRN Reason: SBP > 160 Octreotide Acetate 0.5 mg/ (Dextrose) 251 mls @ 12.5 mls/hr CONT INF .Q20H5M [facility] Last Admin: 07/30/21 05:31 Dose: 12.5 mls/hr Documented by: Norepinephrine Bitartrate 8 mg (/ Sodium Chloride) 250 mls @ 9.375 mls/hr CONT INF .[id number] [facility]; Protocol Last Titration: 07/30/21 07:00 Dose: 10 mcg/min, 18.8 mls/hr Documented by: Pantoprazole Sodium 40 mg/ (Sodium Chloride) 110 mls @ 330 mls/hr IV Q12 [facility] Last Infusion: 07/29/21 22:30 Dose: Infused Documented by: Vancomycin IV-PHARMACY TO DOSE (1 each/ Sodium Chloride) 500 mls @ 250 mls/hr IV X1 PRN; Protocol PRN Reason: Rx to Dose Ceftriaxone Sodium 2 gm/ (Sodium Chloride) 50 mls @ 100 mls/hr IV Q24 [facility] Last Infusion: 07/29/21 13:31 Dose: Infused Documented by: Sodium Chloride () 500 mls @ 15 mls/hr IV PRN PRN PRN Reason: Blood Transfusion Vancomycin HCl 750 mg/ Sodium (Chloride) 265 mls @ 250 mls/hr IV Q12H [facility] Last Admin: 07/30/21 06:11 Dose: 250 mls/hr Documented by: Dexmedetomidine HCl 400 mcg/ (Sodium Chloride) 100 mls @ 10.788 mls/hr CONT INF .Q9H17M [facility]; Protocol Last Titration: 07/30/21 07:00 Dose: 0.2 mcg/kg/hr, 4.3 mls/hr Documented by: Fentanyl Citrate 1,000 mcg/ (Sodium Chloride) 100 mls @ 2.5 mls/hr CONT INF .Q40H [facility]; Protocol Last Titration: 07/30/21 07:00 Dose: 25 mcg/hr, 2.5 mls/hr Documented by: Lactulose (Lactulose 20 Gm/30 Ml Udc) 20 gm GT Q4H EV Lorazepam (Lorazepam 2 Mg/Ml Syringe) 2 mg IV Q2H PRN PRN; Protocol PRN Reason: CIWA score > 8 but <15 Last Admin: 07/29/21 00:45 Dose: 2 mg Documented by: Lorazepam (Lorazepam 2 Mg/Ml Syringe) 2 mg IV UD PRN; Protocol PRN Reason: CIWA score >/=15. Last Admin: 07/28/21 20:24 Dose: 2 mg Documented by: Lorazepam (Lorazepam 1 Mg Tablet) 2 mg GT Q2H PRN PRN; Protocol PRN Reason: CIWA score > 8 but <15 Lorazepam (Lorazepam 1 Mg Tablet) 2 mg GT UD PRN; Protocol PRN Reason: CIWA score >/=15. Magnesium Hydroxide (Magnesium Hydroxide 30 Ml Udc) 30 ml GT DAILY PRN PRN PRN Reason: Constipation Midodrine (Midodrine Hcl 5 Mg Tablet) 10 mg GT TIDCM [facility] Last Admin: 07/29/21 18:28 Dose: 10 mg Documented by: Multivitamins/Minerals (Multivitamins,Ther W-Minerals Tablet) [facility] Ondansetron HCl (Ondansetron 4 Mg/2 Ml Vial) 4 mg IV Q8H PRN PRN PRN Reason: NAUSEA/VOMITING Last Admin: 07/28/21 20:17 Dose: 4 mg Documented by: Pentoxifylline (Pentoxifylline 400 Mg Tablet) 400 mg PO TIDCM [facility] Last Admin: 07/29/21 18:40 Dose: Not Given Documented by: Prochlorperazine Edisylate (Prochlorperazine 10 Mg/2 Ml Vial) 5 mg IV Q4H PRN PRN PRN Reason: Breakthrough Nausea/Vomiting Psyllium Hydrophilic Mucilloid (Psyllium 1 Packet) 1 packet GT DAILY PRN PRN PRN Reason: Constipation Rifaximin (Rifaximin 550 Mg Tablet) 550 mg GT BID [facility] Last Admin: 07/29/21 21:41 Dose: 550 mg Documented by: Senna/Docusate Sodium (Senna/Docusate Sodium 1 Tablet) 2 tablet GT BID PRN PRN PRN Reason: Constipation Sodium Chloride (0.9% Saline Lock 10 Ml Syringe) 10 - 40 ml IV UD PRN PRN Reason: Midline Flush Last Admin: 07/29/21 13:02 Dose: 20 ml Documented by: Sodium Chloride (0.9 % Nacl (Sterile) Posiflush 10 Ml) 10 - 40 ml IV UD PRN PRN Reason: Port access or dressing change Sodium Chloride (0.9% Saline Lock 10 Ml Syringe) 10 - 40 ml IV UD PRN PRN Reason: Multilumen/Reich Flush Sodium Chloride (0.9 % Nacl (Sterile) Posiflush 10 Ml) 10 - 40 ml IV UD PRN PRN Reason: Port access or dressing change Sodium Chloride (0.9% Saline Lock 10 Ml Syringe) 10 - 40 ml IV UD PRN PRN Reason: SALINE FLUSH Thiamine HCl (Thiamine Hydrochloride 100 Mg Tablet) 100 [facility] Stop: 08/01/21 08:01 Last Admin: 07/29/21 18:28 Dose: 100 mg Documented by: Throat Lozenges (Benzocaine/Menthol 1 Lozenge) 1 lozenge MUCOUS MEM Q2H PRN PRN PRN Reason: SORE THROAT Charges/Coding Visit Charges Inpatient E&M: 61089 Subs Hosp L3
[2021-07-30] MEDS: Multivitamins,Ther W-Minerals Tablet 1 TABLET GT (10:29)
[2021-07-30] MEDS: Folic Acid 1 MG Tablet GT (10:29)
[2021-07-30] MEDS: rifAXIMin 550 MG Tablet GT (10:31)
[2021-07-30] MEDS: Thiamine Hydrochloride 100 MG Tablet GT ×2 (10:31→18:38)
[2021-07-30] MEDS: Albuterol 2.5 MG/3 ML VIAL.NEB. INHALATION (11:16)
[2021-07-30] MEDS: Dexmedetomidine 1,000 mcg in 0.9% NS 240 mL 10.8 MCG CONT INF (17:13)
[2021-07-30 18:02] LABS: Vancomycin, Trough Level 16.2 ug/mL (5.0-15.0)
--- NOTE | 2021-07-30 18:16 | PN.GI_ITS ---
Subjective Subjective No critical events overnight. Patient is not making much urine. She also has not having any stools despite the continuous administration of lactulose. She is off of albumin and still on 1 pressor. She is also being maintained on Precedex for delirium tremens. Objective Data Objective Data Vital Signs: Vital Signs Temp Pulse Resp BP Pulse Ox 97.0 F L 66 16 97/48 L 93 07/30/21 16:00 07/30/21 17:10 07/30/21 17:10 07/30/21 17:00 07/30/21 17:10 Oxygen Flow Rate (L/min) 6 Oxygen Delivery Method Mechanical Ventilator Weight: 190 lb 4.143 oz Body Mass Index (BMI) 28.8 Intake & Output: Intake and Output for Last 24 Hours 07/28/21 07/29/21 07/30/21 23:59 23:59 23:59 Intake Total 3410.00 / 3422.38 3371.99 / 3458.33 2005.60 / 2005.60 Output Total 400 / 800 1285 / 1285 160 / 160 Balance 3010.00 / 2622.38 2086.99 / 2173.33 1845.60 / 1845.60 Lab / Micro Data Result Diagrams: 07/30/21 04:30 07/30/21 04:30 Labs: Laboratory Results - last 24 hr 07/28/21 18:10: Tumor Marker AFP 1.8 07/30/21 04:30: WBC 6.5, RBC 2.14 L, Hgb 8.0 L, Hct 23.6 L, MCV 110.3 H, MCH 37.4 H, MCHC 33.9, RDW Std Deviation 80.6 H, RDW Coeff of Meagan 19.9 H, Plt Count 88 L, MPV 10.2, Immature Gran % (Auto) 0.300, Neut % (Auto) 66.1, Lymph % (Auto) 13.9 L, [place] % (Auto) 13.8 H, Eos % (Auto) 4.8, Baso % (Auto) 1.1 H, Absolute Neuts (auto) 4.3, Absolute Lymphs (auto) 0.90, Nucleated RBC % 0, Differential Comment SCANNED, Platelet Estimate SLT DEC, Hypochromasia 2+, Anisocytosis 3+, Macrocytosis 3+ 07/30/21 04:30: Sodium 136, Potassium 3.7, Chloride 109 H, Carbon Dioxide 20.0 L , Anion Gap 7, BUN 23 H, Creatinine 0.96, Estim Creat Clear Calc 60.60, Est GFR (MDRD) Af Amer 76, Est GFR (MDRD) Non-Af 63, BUN/Creatinine Ratio 23.9 H, Glucose 147 H, Calcium 8.5, Total Bilirubin 6.10 H, AST 95 H, ALT 46, Alkaline Phosphatase 76, Total Protein 6.6, Albumin 3.4, Globulin 3.2, Albumin/Globulin Ratio 1.1 07/30/21 04:30: Ammonia 126.0 H 07/30/21 17:00: Vancomycin Trough 16.2 H Micro: Microbiology 07/29/21 11:32 Sputum, Induced/Lukens Gram Stain - Final 07/29/21 11:32 Sputum, Induced/Lukens Respiratory Culture - Preliminary Culture exhibits no growth. 07/29/21 15:00 Urine Catheter - Bowser Urine Culture - Preliminary Culture exhibits no growth. 07/28/21 13:53 Blood Culture (Wb) - Anticubital Right Blood Culture - Preliminary No growth in 48 hours. 07/28/21 13:45 Blood Culture (Wb) - Anticubital Left Blood Culture - Preliminary No growth in 48 hours. 07/28/21 17:10 Aspirate - Abdominal Gram Stain - Final 07/28/21 17:10 Aspirate - Abdominal Wound Culture - Preliminary No growth-Final to follow 07/29/21 00:00 Stool Stool Occult Blood (ENOC) - Final Occult Blood Positive Physical Exam Const General Appearance: appears older than stated age, grossly edematous, intubated and patient mechanically ventilated Exam Limitations: altered mental status HEENT hearing grossly normal bilaterally HEENT Narrative: Positive scleral icterus Head and Scalp: normal to inspection Face and Sinus: face symmetric Nose: external nose normal Mouth: oral and palatal mucosa normal and OG tube in place Eyes conjunctivae normal Sclera: sclera abnormal Neck full ROM General: normal visual inspection Lymph Lymphatic: no lymphadenopathy noted Chest inspection of chest normal and palpation of chest normal Chest: symmetrical chest wall rise Resp normal respiratory effort Effort and Inspection: able to speak in complete sentences Cardio regular rate GI non-distended Percussion: normal to percussion Rectal Exam: deferred Neuro Speech: speech normal Gait (Neuro): normal gait Assessment & Plan Assessment/Plan (1) Hyperammonemia: PLAN: Ammonia is a highly toxic compound, particularly to the brain. When blood concentrations of ammonia are sufficiently elevated, respiratory alkalosis, cerebral edema, altered mental status, seizures, coma and can ensue. Sodium benzoate is an adjunctive agent that can be used in addition to lactulose and rifaximin and may provide an option for some select patients with refractory HE who have failed to respond to standard therapies . I will give 1 dose to see if it causes the ammonia level to improve. Because it has such a high sodium content around 1 to make her more edematous. (2) GI bleed: QUALIFIERS: GI bleed type/associated pathology: unspecified gastrointestinal hemorrhage type Qualified Code(s): K92.2 - Gastrointestinal hemorrhage, unspecified PLAN: If she has a slow GI bleed that could be a reason why her ammonia is not improving and driving it to continuously go up. We will continue to PPI drip for now and I will discuss this with the family. (3) SBP (spontaneous bacterial peritonitis): PLAN: She is on antibiotics and her white count is improving. (4) Septic shock: PLAN: She still remains on Levophed and midodrine. (5) Alcoholic hepatitis: PLAN: She is on Pentoxyfilline for alcoholic hepatitis. We will continue this for now (6) Ascites due to alcoholic cirrhosis: PLAN: Patient's belly has about the same and she does not need repeat paracentesis at this time. Charges/Coding Visit Charges Inpatient E&M: 22446 Subs Hosp L3
--- NOTE | 2021-07-30 19:10 | NURSING ---
pts' dtr Lay called in. notified this RN of family wishes to let things naturally take their course, no CPR or shocking. Notified family wish for DNRCC-A at this time. they have also request call from [facility] 07/31 to disc palliative vs hospice.
--- NOTE | 2021-07-30 19:54 | PCM.HOSP.N ---
Hospitalist Note I was called by nursing, Jazz, after discussion with the family they have elected to change her CODE STATUS to DNR CCA with intubation as patient is already intubated. They are leaning towards more comfort measures at this time. CODE STATUS was changed with order being placed.
--- NOTE | 2021-07-30 20:00 | NURSING ---
pt's dtr Lay called again. stating after speaking further w/her sister and her aunt, they wish to stop all treatment and remove the breathing tube. arrangements made for family to be at bedside 108 noon for discussion with /ANGELICA.
--- NOTE | 2021-07-30 20:39 | PCM.RX.CS ---
Consult Pharmacy has been consulted to manage selected antiobiotic: Vancomycin Type of Consult: Follow-up Suspected Infection: Sepsis Prior Doses of Antibiotics Received/Current Regimen: Has been on 750mg iv q12h. Labs: Sodium 136 mmol/L (136-145) 07/30/21 04:30 Potassium 3.7 mmol/L (3.5-5.1) 07/30/21 04:30 Chloride 109 mmol/L (98-107) H 07/30/21 04:30 Carbon Dioxide 20.0 mmol/L (21.0-32.0) L 07/30/21 04:30 Anion Gap 7 (5-15) 07/30/21 04:30 BUN 23 mg/dL (7-18) H 07/30/21 04:30 Creatinine 0.96 mg/dL (0.55-1.02) 07/30/21 04:30 Est GFR (MDRD) Af Amer 76 mL/min (>60) 07/30/21 04:30 Est GFR (MDRD) Non-Af 63 mL/min (>60) 07/30/21 04:30 BUN/Creatinine Ratio 23.9 RATIO (10-20) H 07/30/21 04:30 Glucose 147 mg/dL (74-106) H 07/30/21 04:30 Vancomycin Trough 16.2 ug/mL (5.0-15.0) H 07/30/21 17:00 Microbiology: Microbiology 07/29/21 11:32 Sputum, Induced/Lukens Gram Stain - Final 07/29/21 11:32 Sputum, Induced/Lukens Respiratory Culture - Preliminary Culture exhibits no growth. 07/29/21 15:00 Urine Catheter - Bowser Urine Culture - Preliminary Culture exhibits no growth. 07/28/21 13:53 Blood Culture (Wb) - Anticubital Right Blood Culture - Preliminary No growth in 48 hours. 07/28/21 13:45 Blood Culture (Wb) - Anticubital Left Blood Culture - Preliminary No growth in 48 hours. 07/28/21 17:10 Aspirate - Abdominal Gram Stain - Final 07/28/21 17:10 Aspirate - Abdominal Wound Culture - Preliminary No growth-Final to follow 07/29/21 00:00 Stool Stool Occult Blood (ENOC) - Final Occult Blood Positive Weight used for dosin.3 kg Estimated Creatinine Clearance: 61 ml/min Goal Trough: 15-20 mcg/mL Pharmacy Plan for Drug Dosing: Trough today 16.2 ~11 hrs post last dose. Renal function improved from CrCl 49 to CrCl 61ml/min. Will increase dose to 1gm iv q12h per protocol. Another trough ordered for 08.01.21 before 4th dose of new regimen. Pharmacy Service will continue to monitor and adjust dosing as required. Follow-Up Labs: Trough Vancomycin - 10..21 @1730 before 1800 dose
[2021-07-30] MEDS: CHLORHEXIDINE GLUC 2% CLOTH 1 EACH TOWELETTE TOPICAL (22:34)
[2021-07-31] VITALS (20 sets, daily range): BP systolic 61–115; BP diastolic 28–64; PULSE 44–71; RESP 14–22; TEMP 35.3–36.6; O2SAT 90–100
[2021-07-31] MEDS: Dexmedetomidine 1,000 mcg in 0.9% NS 240 mL 32.4 MCG CONT INF ×2 (02:47→10:48)
[2021-07-31] MEDS: Lactulose 20 GM/30 ML UDC GT ×2 (03:25→09:43)
--- NOTE | 2021-07-31 05:48 | PCM.PN.INT ---
Assessment & Plan Assessment/Plan (1) SBP (spontaneous bacterial peritonitis): (2) Septic shock: PLAN: RECOMMENDATIONS: 1. Continue to wean FiO2 to maintain oxygen saturations at or above 90%. 2. Continue Levophed to maintain mean arterial pressure at or above 65 mmHg. 3. Continue lactulose and rifaximin. 4. Continue PPI therapy. 5. Continue antimicrobials as ordered. 6. Family meeting later today to discuss goals of care. IMPRESSIONS: 1. Decompensated alcoholic cirrhosis The patient presented to the hospital with findings concerning for SBP and decompensated cirrhosis. She did undergo a paracentesis after being evaluated by gastroenterology. There are tentative plans for upper endoscopy once the patient has been stabilized clinically. She is not a candidate for transplantation or TIPS procedure due to ongoing alcohol dependency. 2. Multifactorial shock Likely related to septic etiology secondary to possible SBP combined with hypovolemic etiology in the setting of third spacing due to alcoholic cirrhosis. Plan to continue current supportive measures including vasopressor support to maintain a mean arterial pressure at or above 65 mmHg. Continue antimicrobials as ordered. 3. Hepatic encephalopathy As noted above, will continue supportive measures. Lactulose and rifaximin will be continued. Monitor ammonia level as needed. 4. Anemia/thrombocytopenia/coagulopathy Secondary to chronic alcohol dependency and underlying liver disease. No indication for transfusion of blood products at the current time. 5. Acute kidney injury Resolved. Likely prerenal in etiology in the setting of large volume paracentesis. Ischemic ATN is also a possibility. Continue to monitor urine output for now. No current indication for renal replacement therapy. 6. Chronic alcohol dependency with acute withdrawal Plan continue Precedex along with thiamine and folate per protocol. UPDATE: I met with the patient's daughter and sister later this afternoon regarding the patient's overall prognosis and goals of care. They have decided to proceed with terminal extubation and initiation of comfort care measures. If the patient remains stable once removed from the ventilator and upon withdrawal of vasopressor support, will consider inpatient hospice care transfer. CODE STATUS has been updated to DNR comfort care. TIME: 34 minutes of critical care time, inclusive of procedures, was spent addressing the patient's acute hypoxemic respiratory failure, decompensated alcoholic cirrhosis, multifactorial shock, hepatic encephalopathy, acute kidney injury, review of all data and collaboration with the care team. ([id number], [id number]) Subjective Subjective The patient was seen and examined at the bedside this morning. Events from the last 24 hours have been reviewed. The patient is currently afebrile. She remains on Levophed at 15 mcg/min to maintain hemodynamic stability. The patient is currently sedated on Precedex and fentanyl. She remains on assist control mode of mechanical ventilation with an FiO2 requirement of 30% and PEEP of 5. She is currently documented to be overall net +7.6 L for the hospital admission. The patient's family did visit yesterday and are considering withdrawal of support and transition to comfort care measures later today. Objective Data Objective Data The patient's most recent lab work, culture data and imaging studies have all been personally reviewed. Blood cultures are pending. Abdominal aspirate is pending. Sputum culture is pending. Stool for occult blood was positive. Vital Signs: Vital Signs Temp Pulse Resp BP Pulse Ox 97.9 F 69 16 115/55 L 96 07/31/21 00:00 07/31/21 05:17 07/31/21 05:17 07/31/21 03:00 07/31/21 05:17 Oxygen Flow Rate (L/min) 6 Oxygen Delivery Method Mechanical Ventilator Weight: 87.8 kg Body Mass Index (BMI) 28.8 Intake & Output: Intake and Output for Last 24 Hours 07/29/21 07/30/21 07/31/21 23:59 23:59 23:59 Intake Total 3371.99 / 3458.33 3292.30 / 3329.70 397.98 / 397.98 Output Total 1285 / 1285 935 / 935 Balance 2086.99 / 2173.33 2357.30 / 2394.70 397.98 / 397.98 Lab / Micro Data Attestation: I reviewed the patient's lab results. Result Diagrams: 07/31/21 08:00 07/31/21 08:00 Labs: Laboratory Results - last 24 hr 07/28/21 18:10: Tumor Marker AFP 1.8 07/30/21 04:30: Differential Comment SCANNED, Platelet Estimate SLT DEC, Hypochromasia 2+, Anisocytosis 3+, Macrocytosis 3+ 07/30/21 17:00: Vancomycin Trough 16.2 H Micro: Microbiology 07/29/21 11:32 Sputum, Induced/Lukens Gram Stain - Final 07/29/21 11:32 Sputum, Induced/Lukens Respiratory Culture - Preliminary Culture exhibits no growth. 07/29/21 15:00 Urine Catheter - Bowser Urine Culture - Preliminary Culture exhibits no growth. 07/28/21 13:53 Blood Culture (Wb) - Anticubital Right Blood Culture - Preliminary No growth in 48 hours. 07/28/21 13:45 Blood Culture (Wb) - Anticubital Left Blood Culture - Preliminary No growth in 48 hours. 07/28/21 17:10 Aspirate - Abdominal Gram Stain - Final 07/28/21 17:10 Aspirate - Abdominal Wound Culture - Preliminary No growth-Final to follow 07/29/21 00:00 Stool Stool Occult Blood (ENOC) - Final Occult Blood Positive Physical Exam Const Constitutional Narrative: Jaundiced in appearance General Appearance: comfortable, intubated and patient mechanically ventilated HEENT normocephalic and head/scalp atraumatic Mouth: endotracheal tube in place and OG tube in place Eyes PERRL Neck supple General: trachea midline Resp Auscultation: wheezes and diminished lung sounds; Negative for rales or rhonchi Cardio regular rate and regular rhythm GI Inspection: abdominal distention Palpation: ascites Percussion: fluid wave Extremity General Extremity: edema; Negative for clubbing Skin no rashes or lesions noted Neuro Sensorium / Orientation: sedated on vent Charges/Coding Procedures Hospitalists Procedures: 82485 Critial Care 1st Hr
[2021-07-31] MEDS: Vancomycin IV 1,000 MG/200 ML BAG 200 MG IV (06:15)
[2021-07-31] MEDS: TITRATION PARAMETER CHANGE 1 EACH IV (06:18)
[2021-07-31 08:17] LABS: Absolute Lymphocyte Count 0.97 X10^3/uL (0.83-4.51); Absolute Neutrophil Count 6.7 X10^3/uL (2.0-7.7); Basophil# 0.07 X10^3/uL; Basophil% 0.7 % (0-1); Eosinophil# 0.47 X10^3/uL; Hematocrit 26.2 % (37-47); Hemoglobin 8.8 g/dL (12.0-15.0); Lymphocyte # 0.97 X10^3/ul (0.83-4.51); Lymphocyte % 10.4 % (19-41); Mean Corp Hgb Conc 33.6 g/dL (32-36); Mean Corpuscular Hgb 36.7 pg (27.0-32.0); Mean Corpuscular Volume 109.2 fL (81-99); Mean Platelet Vol. 10.5 fl (6.2-12.0); Monocyte# 1.12 X10^3/uL; NRBC Flagged by Analyzer 0 % (0-5); Neutrophil # 6.67 X10^3/uL (2.7-7.7); Neutrophil % 71.5 % (47-70); POSITIVE COUNT YES; POSITIVE MORPHOLOGY YES; Platelet Count 95 K/mm3 (150-450); RBC Distribution Width CV 19.4 % (11.6-14.6); RBC Distribution Width SD 77.4 fl (35.1-43.9); White Blood Count 9.3 K/mm3 (4.4-11.0)
[2021-07-31 08:20] LABS: Differential Indicated SCAN CRITERIA MET
[2021-07-31 08:41] LABS: ALB/GLOB Ratio 0.9 RATIO (0.9-2.4); AST(SGOT) 155 U/L (15-37); Alanine Aminotransfer ALT/SGPT 50 U/L (13-56); Alkaline Phosphatase 81 U/L (45-117); Anion Gap 8 (5-15); BUN 20 mg/dL (7-18); BUN/Creat Ratio 22.6 RATIO (10-20); Calcium,Total 8.4 mg/dL (8.5-10.1); Chloride 112 mmol/L (98-107); Creatinine, Serum 0.89 mg/dL (0.55-1.02); EST Glomerular Filtration Rate 69 mL/min (>60); Est Glom Filt Rate - Afr Amer 84 mL/min (>60); Estimated Creatinine Clearance 65.37 ml/min; Globulin 3.2 g/dL (2.2-4.2); Glucose 147 mg/dL (74-106); Potassium 3.7 mmol/L (3.5-5.1); Protein, Total 6.2 g/dL (6.4-8.2); Sodium Level 139 mmol/L (136-145)
[2021-07-31 08:50] LABS: Anisocytosis 1+; Platelet Estimate SLT DEC (ADEQ)
[2021-07-31] MEDS: Multivitamins,Ther W-Minerals Tablet 1 TABLET GT (09:37)
[2021-07-31] MEDS: CHLORHEXIDINE GLUC 2% CLOTH 1 EACH TOWELETTE TOPICAL (09:37)
[2021-07-31] MEDS: Thiamine Hydrochloride 100 MG Tablet GT (09:37)
[2021-07-31] MEDS: Pentoxifylline 400 MG Tablet PO (09:38)
[2021-07-31] MEDS: Midodrine HCl 5 MG Tablet 10 MG GT (09:38)
[2021-07-31] MEDS: Folic Acid 1 MG Tablet GT (09:38)
[2021-07-31] MEDS: rifAXIMin 550 MG Tablet GT (09:38)
--- NOTE | 2021-07-31 09:44 | CASEMGMT ---
SW called daughter Lay, confirmed family will be here at 12pm to speak w/physician and SW and talk about extubation of pt. SW informed physician. SW called [facility] to check on bed availability, it is anticipated they would have a bed later today if needed. SW did send initial information to [facility] as it is anticipated pt will need hospice placement after extubation, as per physician. SW will continue to follow. KOFI Matamoros
[2021-07-31] MEDS: Chlorhexidine 15 ML PO (10:06)
--- NOTE | 2021-07-31 12:08 | CASEMGMT ---
Family here, spoke w/physician, plan is to transition pt to comfort care. SW available for support and to contact hospice for referral as needed. KOFI Matamoros
[2021-07-31] MEDS: LORazepam 2 MG/ML Syringe IV ×4 (12:22→23:52)
[2021-07-31] MEDS: Morphine 2 MG/ML Syringe IV ×2 (12:22→15:02)
--- NOTE | 2021-07-31 12:28 | NURSING ---
pt extubated, og removed, family present will continue with comfort care
--- NOTE | 2021-07-31 12:34 | PN.HOSP_ITS ---
Subjective Subjective Still on vent. On pressors and sedation. Objective Data Objective Data Vital Signs: Vital Signs Temp Pulse Resp BP Pulse Ox 35.9 C L 70 19 H 114/57 L 95 07/31/21 09:13 07/31/21 10:20 07/31/21 10:20 07/31/21 09:13 07/31/21 10:20 Oxygen Flow Rate (L/min) 6 Oxygen Delivery Method Mechanical Ventilator Weight: 87.8 kg Body Mass Index (BMI) 28.8 Intake & Output: Intake and Output for Last 24 Hours 07/29/21 07/30/21 07/31/21 23:59 23:59 23:59 Intake Total 3371.99 / 3458.33 3292.30 / 3329.70 1096.89 / 1096.89 Output Total 1285 / 1285 935 / 935 375 / 375 Balance 2086.99 / 2173.33 2357.30 / 2394.70 721.89 / 721.89 Lab / Micro Data Result Diagrams: 07/31/21 08:00 07/31/21 08:00 Labs: Laboratory Results - last 24 hr 07/30/21 17:00: Vancomycin Trough 16.2 H 07/31/21 07:40: Ammonia 139.0 H 07/31/21 08:00: WBC 9.3, RBC 2.40 L, Hgb 8.8 L, Hct 26.2 L, MCV 109.2 H, MCH 36.7 H, MCHC 33.6, RDW Std Deviation 77.4 H, RDW Coeff of Meagan 19.4 H, Plt Count 95 L, MPV 10.5, Immature Gran % (Auto) 0.400, Neut % (Auto) 71.5 H, Lymph % (Auto) 10.4 L, Menard % (Auto) 12.0 H, Eos % (Auto) 5.0, Baso % (Auto) 0.7, Absolute Neuts (auto) 6.7, Absolute Lymphs (auto) 0.97, Nucleated RBC % 0, Platelet Estimate SLT DEC, Anisocytosis 1+ 07/31/21 08:00: Sodium 139, Potassium 3.7, Chloride 112 H, Carbon Dioxide 19.0 L , Anion Gap 8, BUN 20 H, Creatinine 0.89, Estim Creat Clear Calc 65.37, Est GFR (MDRD) Af Amer 84, Est GFR (MDRD) Non-Af 69, BUN/Creatinine Ratio 22.6 H, Glucose 147 H, Calcium 8.4 L, Total Bilirubin 4.30 H, AST 155 H, ALT 50, Alkaline Phosphatase 81, Total Protein 6.2 L, Albumin 3.0 L, Globulin 3.2, Albumin/Globulin Ratio 0.9 Micro: Microbiology 07/29/21 15:00 Urine Catheter - Bowser Urine Culture - Final Culture exhibits no growth. 07/29/21 11:32 Sputum, Induced/Lukens Gram Stain - Final 07/29/21 11:32 Sputum, Induced/Lukens Respiratory Culture - Final Culture exhibits no growth. 07/28/21 13:53 Blood Culture (Wb) - Anticubital Right Blood Culture - Preliminary No growth in 48 hours. 07/28/21 13:45 Blood Culture (Wb) - Anticubital Left Blood Culture - Preliminary No growth in 48 hours. 07/28/21 17:10 Aspirate - Abdominal Gram Stain - Final 07/28/21 17:10 Aspirate - Abdominal Wound Culture - Preliminary No growth-Final to follow 07/29/21 00:00 Stool Stool Occult Blood (ENOC) - Final Occult Blood Positive Physical Exam Const Constitutional Narrative: intubated. sedated. HEENT head/scalp atraumatic HEENT Narrative: icterus Head and Scalp: normocephalic Resp normal respiratory effort, no retractions and no use of accessory muscles Cardio regular rate, regular rhythm, S1 normal heart sound and S2 normal heart sound GI normal to inspection, nondistended, normoactive bowel sounds, soft to palpation, non-tender and non-distended Extremity normal to inspection Skin Skin Narrative: jaundice Neuro Sensorium / Orientation: awake and alert Assessment & Plan Assessment/Plan (1) Septic shock: (2) SBP (spontaneous bacterial peritonitis): (3) GI bleed: QUALIFIERS: GI bleed type/associated pathology: unspecified gastrointestinal hemorrhage type Qualified Code(s): K92.2 - Gastrointestinal hemorrhage, unspecified (4) Acute kidney injury: (5) Ascites due to alcoholic cirrhosis: PLAN: The patient is a 61 y/o F recent admission at [facility] 07/20- 07/22/21 leaving AMA was admitted in septic shock state with acute GI bleed and decompensated alcoholic cirrhosis 1. Septic shock * secondary to suspected SBP w/ evidence of sepsis-induced organ dysfunction/tissue hypoperfusion: Patient is being admitted in ICU. On vasop ressors. As the right IJ CVC catheter. Was a started on broad-spectrum antibiotic vancomycin and Zosyn. Naturopathic Doctor and GI are comanaging patient * 07/30:Patient is intubated.On fentanyl And Precedex drip. Slight decrease in total bili . Slight decrease in total bili. And and AST.Serum magnesium phosphorus level normal.On IV ceftriaxone andVancomycin * 07/31: made DNRCC. Med descalated. 2. Acute GI Bleed most likely from portal hypertension, DD, but cirrhosis: On IV pressor.On IV albumin midodrine and octreotide. 07/30: PPI and octreotide drip. 3. Decompensated cirrhosis with chronic alcohol use disorder with ascites, encephalopathy, kidney dysfunction possible HRS coagulopathy with thrombocytopenia. GI bleed: Patient has Bowser catheter. Urine output is low probably from large volume paracentesis. Maintain blood pressure. Patient on pentoxifylline as per GI recommendation. Maddey's Discrimination factor is high. Steroid contraindicated. 4. Acute EtOH Withdrawal: Currently on vasopressors. 5. Acute kidney injury : Patient might have acute kidney injury secondary to hypoperfusion and large volume paracentesis. Maintain perfusion. Has Bowser catheter movement, monitor urine output. 6. Questionable abdominal wall cellulitis: On antibiotic. 7. Chronic COPD: Will maintain on oxygen with wean as tolerated to room air, continue ATC duonebs, PRN albuterol, HOB, IS parameters. 9. Tobacco Abuse: 10. GERD: No IV PPI 11. DVT prophylaxis: SCDs, hold any chemoprophylaxis given acute presentation as noted. 12. CODE status: DNRCC. Hospice consult. Charges/Coding Visit Charges Inpatient E&M: 64782 Subs Hosp L2
--- NOTE | 2021-07-31 16:08 | NURSING ---
pt extubated ,og removed , family present, will continue with comfort care
--- NOTE | 2021-07-31 16:10 | NURSING ---
pt extubated to 6l per nc, og removed, family present, will continue with comfort care
--- NOTE | 2021-07-31 18:05 | NURSING ---
report called to med-surg transferred per bed with belongings to 304,family present
--- NOTE | 2021-07-31 20:19 | NURSING ---
[facility] [place] [place],
--- NOTE | 2021-07-31 20:30 | NURSING ---
family requested medication to decrease work of breathing, sounds. support provided and prn ativan given and effective- see MAR.
[2021-08-01 02:00] VITALS: RESP 12
[2021-08-01] MEDS: LORazepam 2 MG/ML Syringe IV ×3 (05:00→20:35)
[2021-08-01] MEDS: 0.9% Saline Lock 10 ML Syringe IV ×5 (05:03→23:57)
[2021-08-01 05:07] VITALS: PULSE 45; RESP 10
[2021-08-01 06:10] VITALS: RESP 9
[2021-08-01 08:27] VITALS: O2SAT 98
--- NOTE | 2021-08-01 12:10 | CASEMGMT ---
Addendum entered by Ashia Simpson 08/01/21 15:44: vision care associate reports family decline hospice at this time. Danielle with [facility] updated. Original Note: SOCIAL WORK Discussed patient's case with discharge planner. Patient is comfort care. vision care associate reports was informed Hospice did not have beds. Call to [facility] nurse, Danielle. Per Danielle, does have beds available. Danielle reports no referral information was ever received on patient and requests information be faxed to [facility] again. Information faxed to [phone]. vision care associate updated and will follow up with family once they arrive regarding Hospice care. SW Will continue to follow as needed. Kiana Simpson, PLASTIC CUTTER, STONE LATHE OPERATOR
[2021-08-01] MEDS: Morphine 2 MG/ML Syringe IV ×3 (13:12→23:57)
--- NOTE | 2021-08-01 13:44 | PN.HOSP_ITS ---
Subjective Subjective Terminally extubated yesterday. Transferred to medical surgical unit. Patient is unresponsive to verbal noxious stimuli. Objective Data Objective Data Vital Signs: Vital Signs Temp Pulse Resp BP Pulse Ox 35.3 C L 45 L 9 L 61/28 L 98 07/31/21 23:57 08/01/21 05:07 08/01/21 06:10 07/31/21 23:57 08/01/21 08:27 Oxygen Flow Rate (L/min) 2 Oxygen Delivery Method Nasal Cannula Weight: 87.8 kg Body Mass Index (BMI) 28.8 Intake & Output: Intake and Output for Last 24 Hours 07/30/21 07/31/21 08/01/21 23:59 23:59 23:59 Intake Total 3292.30 / 3329.70 1396.89 / 1396.89 Output Total 935 / 935 420 / 420 0 / 0 Balance 2357.30 / 2394.70 976.89 / 976.89 0 / 0 Lab / Micro Data Result Diagrams: 07/31/21 08:00 07/31/21 08:00 Micro: Microbiology 07/28/21 17:10 Aspirate - Abdominal Gram Stain - Final 07/28/21 17:10 Aspirate - Abdominal Wound Culture - Final No growth aerobically. 07/29/21 15:00 Urine Catheter - Bowser Urine Culture - Final Culture exhibits no growth. 07/29/21 11:32 Sputum, Induced/Lukens Gram Stain - Final 07/29/21 11:32 Sputum, Induced/Lukens Respiratory Culture - Final Culture exhibits no growth. 07/28/21 13:53 Blood Culture (Wb) - Anticubital Right Blood Culture - Preliminary No growth in 48 hours. 07/28/21 13:45 Blood Culture (Wb) - Anticubital Left Blood Culture - Preliminary No growth in 48 hours. 07/29/21 00:00 Stool Stool Occult Blood (ENOC) - Final Occult Blood Positive Physical Exam Const Constitutional Narrative: Unresponsive to verbal or noxious stimuli. Coarse audible respirations. Resp Resp Narrative: Coarse breath sounds throughout Cardio regular rate and regular rhythm GI GI Narrative: Distended. Extremity Extremity Narrative: Edema Skin Skin Narrative: Jaundice Assessment & Plan Assessment/Plan (1) Septic shock: (2) SBP (spontaneous bacterial peritonitis): (3) GI bleed: QUALIFIERS: GI bleed type/associated pathology: unspecified gastrointestinal hemorrhage type Qualified Code(s): K92.2 - Gastrointestinal hemorrhage, unspecified (4) Acute kidney injury: (5) Ascites due to alcoholic cirrhosis: (6) Acute respiratory failure with hypoxia: PLAN: The patient is a 61 y/o F recent admission at [facility] 07/20- 07/22/21 leaving AMA was admitted in septic shock state with acute GI bleed and decompensated alcoholic cirrhosis 1. Septic shock * secondary to suspected SBP w/ evidence of sepsis-induced organ dysfunction/tissue hypoperfusion: Patient is being admitted in ICU. On vasopressors. As the right IJ CVC catheter. Was a started on broad-spectrum antibiotic vancomycin and Zosyn. Boat Builder And Repairer and GI are comanaging patient * 07/30:Patient is intubated.On fentanyl And Precedex drip. Slight decrease in total bili . Slight decrease in total bili. And and AST.Serum magnesium phosphorus level normal.On IV ceftriaxone andVancomycin * 07/31: made DNRCC. Meds descalated. 2. Acute hypoxic respiratory failure * 07/31: terminally extubated 3. Acute GI Bleed * most likely from portal hypertension, DD, but cirrhosis: On IV pressor.On IV albumin midodrine and octreotide. * 07/30: PPI and octreotide drip. * 07/31: meds deescalated 3. Decompensated cirrhosis * with chronic alcohol use disorder with ascites, encephalopathy, kidney dysfunction possible HRS coagulopathy with thrombocytopenia. GI bleed: Patient has Bowser catheter. Urine output is low probably from large volume paracentesis. Maintain blood pressure. Patient on pentoxifylline as per GI recommendation. Pauliney's Discrimination factor is high. Steroid contraindicated. 4. Acute EtOH Withdrawal: * meds discontinued 5. Acute kidney injury : * resolved * Patient might have acute kidney injury secondary to hypoperfusion and large volume paracentesis. Maintain perfusion. * no additional work up 6. SBP: * suspected, doubt abd wall cellulitis * had paracentesis, but fluid not sent for testing * antibiotics dc'd given comfort measures. 7. Chronic COPD, Tobacco Abuse, GERD 8. Prognosis: terminal. Charges/Coding Visit Charges Inpatient E&M: 26707 Subs Hosp L2
[2021-08-01 20:35] VITALS: RESP 8
[2021-08-01 23:05] VITALS: RESP 4
[2021-08-02] MEDS: LORazepam 2 MG/ML Syringe IV (00:35)
[2021-08-02] MEDS: 0.9% Saline Lock 10 ML Syringe IV ×6 (00:35→12:43)
[2021-08-02 02:45] VITALS: BP 32/19; PULSE 122; RESP 4; O2SAT 89
[2021-08-02] MEDS: Morphine 2 MG/ML Syringe IV ×5 (02:51→12:43)
[2021-08-02 07:34] VITALS: BP 33/22; PULSE 122; RESP 5; TEMP 36.1; O2SAT 77
[2021-08-02 07:56] VITALS: O2SAT 92
[2021-08-02 08:46] VITALS: RESP 5
--- NOTE | 2021-08-02 10:59 | NURSING ---
DAUGHTER AND FAMILY MEMBERS SAID THEY WERE COMING IN SHORTLY. THIS NURSE IS SITTING AT BEDSIDE CHARTING
--- NOTE | 2021-08-02 12:17 | NURSING ---
FAMILY HAS NOT ARRIVED YET. THIS NURSE IS BACK AT BEDSIDE CHARTING
--- NOTE | 2021-08-02 12:48 | NURSING ---
mouth care provided.
--- NOTE | 2021-08-02 13:57 | PCM.PN.HOSP ---
Subjective Subjective Patient is DNR CC. She was terminally extubated and transferred to regular floor. Currently her respiratory rate is 4 to 5/min. Agonal breathing effort. Objective Data Objective Data Vital Signs: Vital Signs Temp Pulse Resp BP Pulse Ox 96.9 F L 122 H 5 L 33/22 L 92 08/02/21 07:34 08/02/21 07:34 08/02/21 08:46 08/02/21 07:34 08/02/21 07:56 Oxygen Flow Rate (L/min) 2 Oxygen Delivery Method Nasal Cannula Weight: 193 lb 9.054 oz Body Mass Index (BMI) 28.8 Intake & Output: Intake and Output for Last 24 Hours 07/31/21 08/01/21 08/02/21 23:59 23:59 23:59 Intake Total 1396.89 / 1396.89 Output Total 420 / 420 0 / 0 Balance 976.89 / 976.89 0 / 0 Lab / Micro Data Result Diagrams: 07/31/21 08:00 07/31/21 08:00 Micro: Microbiology 07/28/21 17:10 Aspirate - Abdominal Gram Stain - Final 07/28/21 17:10 Aspirate - Abdominal Wound Culture - Final No growth aerobically. 07/29/21 15:00 Urine Catheter - Bowser Urine Culture - Final Culture exhibits no growth. 07/29/21 11:32 Sputum, Induced/Lukens Gram Stain - Final 07/29/21 11:32 Sputum, Induced/Lukens Respiratory Culture - Final Culture exhibits no growth. 07/28/21 13:53 Blood Culture (Wb) - Anticubital Right Blood Culture - Preliminary No growth in 48 hours. 07/28/21 13:45 Blood Culture (Wb) - Anticubital Left Blood Culture - Preliminary No growth in 48 hours. 07/29/21 00:00 Stool Stool Occult Blood (ENOC) - Final Occult Blood Positive Physical Exam Narrative General: Unconscious, unresponsive. Agonal breathing HEENT: Pupils bilateral mildly dilated with sluggish reaction. Atraumatic Oral: Oral mucosa dry. Clotted blood noticed on the palate. Neck: Supple, No JVD, Negative Carotid Bruits Lungs: Respiratory rate 45/min. On 2 L of oxygen. Air entry diminished. Cardiovascular: Sinus tachycardia, hypotensive blood pressure 33/22, muffled heart sound. Abdomen: Scaphoid. No abdominal distention noted. Mild splenomegaly. : No renal angle tenderness. No suprapubic tenderness. Extremities: No edema, Capillary Refill Less than 3 Seconds Skin: No rashes, No breakdown Musculoskeletal: Muscle atrophy of extremities. Neurological: Unresponsive. Psych/Mental Status: Unresponsive Assessment & Plan Assessment/Plan (1) Septic shock: (2) SBP (spontaneous bacterial peritonitis): (3) GI bleed: QUALIFIERS: GI bleed type/associated pathology: unspecified gastrointestinal hemorrhage type Qualified Code(s): K92.2 - Gastrointestinal hemorrhage, unspecified (4) Acute kidney injury: (5) Ascites due to alcoholic cirrhosis: (6) Acute respiratory failure with hypoxia: PLAN: The patient is a 61 y/o F recent admission at [facility] 07/20-07/22/21 leaving AMA was admitted in septic shock state with acute GI bleed and decompensated alcoholic cirrhosis 1. Septic shock secondary to suspected SBP w/ evidence of sepsis-induced organ dysfunction/tissue hypoperfusion: Patient is being admitted in ICU. On vasopressors. As the right IJ CVC catheter. Was a started on broad-spectrum antibiotic vancomycin and Zosyn. Eating Disorder Psychologist and GI are comanaging patient. Patient was intubated and was on fentanyl Precedex drip. Antibiotic titrated down to ceftriaxone and vancomycin. 08/01: DNR CC. Terminally extubated on 07/31. Agonal breathing. 2. Acute hypoxic respiratory failure: Currently having agonal breathing with severe hypopnea. 3. Acute GI Bleed most likely from portal hypertension, decompensated alcoholic cirrhosis: Was on on IV pressor.On IV albumin midodrine and octreotide. Meds D escalated. 3. Decompensated alcoholic cirrhosis with history of chronic alcohol use disorder with ascites, encephalopathy, kidney dysfunction possible HRS coagulopathy with thrombocytopenia. GI bleed: Patient has Bowser catheter. Was on pentoxifylline as per GI recommendation. Madyuliety's Discrimination factor is high. Steroid contraindicated. Currently DNR CC. 4. Acute EtOH Withdrawal: Since patient is currently at the verge of . 5. Acute kidney injury : resolved Patient might have acute kidney injury secondary to hypoperfusion and large volume paracentesis. Maintain perfusion. no additional work up 6. SBP: On antibiotics as mentioned above which was discontinued on 07/31. 7. Chronic COPD, Tobacco Abuse, GERD 8. Prognosis: terminal. Terminally extubated. Charges/Coding Visit Charges Inpatient E&M: 54859 Subs Hosp L2
--- NOTE | 2021-08-02 14:36 | PCM.DEATH ---
Preliminary Cause of Preliminary Cause of Preliminary Cause of : 1. Septic shock at the time of admission secondary to suspected SBP w/ evidence of sepsis-induced organ dysfunction/tissue hypoperfusion: 08/01: DNR CC. Terminally extubated on 07/31. Agonal breathing. 2. Acute hypoxic respiratory failure from septic shock: 3. Acute GI Bleed most likely from portal hypertension, decompensated alcoholic cirrhosis: 3. Decompensated alcoholic cirrhosis with history of chronic alcohol use disorder with ascites, encephalopathy, kidney dysfunction possible HRS coagulopathy with thrombocytopenia. GI bleed: 4. Acute EtOH Withdrawal: Since patient is currently at the verge of . 5. Acute kidney injury : resolved 6. SBP: 7. Chronic COPD, Tobacco Abuse, GERD Terminally extubated.Patient 1425 hrs. at 08/02/2021. Date of Admission: 07/28/21 Date of : 08/02/21 Principle Diagnosis Problem List: Active and Suspected Problems (Updated 08/01/21 @ 13:[address] Eloy Shanks, DO) Acute respiratory failure with hypoxia (Acute) Hyperammonemia (Acute) GI bleed (Acute) SBP (spontaneous bacterial peritonitis) (Acute) Septic shock (Acute) Alcoholic hepatitis (Acute) Ascites due to alcoholic cirrhosis (Acute) Acute hypotension (Acute) Acidosis, lactic (Acute) Alcoholic cirrhosis of liver (Acute) Abdominal wall cellulitis (Acute) Elevated bilirubin (Acute) Acute kidney injury (Acute) Coagulopathy (Acute) Hospital Course The patient is a 61 y/o F recent admission at [facility] 07/20-07/22/21 leaving AMA was admitted in septic shock state with acute GI bleed and decompensated alcoholic cirrhosis, SBP and acute kidney injury. Hospital course and management as follows 1. Septic shock secondary to suspected SBP w/ evidence of sepsis-induced organ dysfunction/tissue hypoperfusion: Patient is being admitted in ICU. On vasopressors. As the right IJ CVC catheter. Was a started on broad-spectrum antibiotic vancomycin and Zosyn. Cotton Inspector and GI are comanaging patient. Patient was intubated and was on fentanyl Precedex drip. Antibiotic titrated down to ceftriaxone and vancomycin. 08/01: DNR CC. Terminally extubated on 07/31. Agonal breathing. 2. Acute hypoxic respiratory failure: Currently having agonal breathing with severe hypopnea. 3. Acute GI Bleed most likely from portal hypertension, decompensated alcoholic cirrhosis: Was on on IV pressor.On IV albumin midodrine and octreotide. Meds D escalated. 3. Decompensated alcoholic cirrhosis with history of chronic alcohol use disorder with ascites, encephalopathy, kidney dysfunction possible HRS coagulopathy with thrombocytopenia. GI bleed: Patient has Bowser catheter. Was on pentoxifylline as per GI recommendation. Paulineemery's Discrimination factor is high. Steroid contraindicated. Currently DNR CC. 4. Acute EtOH Withdrawal: Since patient is currently at the verge of . 5. Acute kidney injury : resolved Patient might have acute kidney injury secondary to hypoperfusion and large volume paracentesis. Maintain perfusion. no additional work up 6. SBP: On antibiotics as mentioned above which was discontinued on 07/31. 7. Chronic COPD, Tobacco Abuse, GERD 8. Prognosis: terminal. Terminally extubated.Patient 1425 hrs. at 08/02/2021. Visit Charges Inpatient E&M: [id number] Disch Hosp
--- NOTE | 2021-08-02 14:41 | NURSING ---
This Nurse took over PTS care at 1:00. Patients family in the room at 2:00 pt at 2:25 rock singer in the room at this time.
--- NOTE | 2021-08-02 14:43 | NURSING ---
coverstitch binder notifying doctor.
--- NOTE | 2021-08-02 14:52 | NURSING ---
[facility] called, ref number [phone]. Able to release to home.
--- NOTE | 2021-08-02 15:41 | NURSING ---
Family left. IVS and Bowser cath removed. Post mortem care being given and home will be called.
== END 2021-08-02 20:10 | DRG 720 ==
LOC: ED 13:49 → ICU 16:15 → MS3 08-02 07:24 → ICU 08-03 10:02
PROVIDERS: Internal Medicine; Internal Medicine Critical Care Medicine; Internal Medicine Gastroenterology; Admitting Provider Family Medicine; Emergency Provider Emergency Medicine; PCP Student in an Organized Health Care Education/Training Program; Visit Provider Internal Medicine
DX: A41.9 Sepsis, unspecified organism (principal); R65.21 Severe sepsis with septic shock; J96.01 Acute respiratory failure with hypoxia; K70.11 Alcoholic hepatitis with ascites; K70.31 Alcoholic cirrhosis of liver with ascites; N17.9 Acute kidney failure, unspecified; J44.9 Chronic obstructive pulmonary disease, unspecified; K65.2 Spontaneous bacterial peritonitis; F10.231 Alcohol dependence with withdrawal delirium; L03.311 Cellulitis of abdominal wall; D69.6 Thrombocytopenia, unspecified; K72.90 Hepatic failure, unspecified without coma; D68.9 Coagulation defect, unspecified; K76.6 Portal hypertension; K92.2 Gastrointestinal hemorrhage, unspecified; K21.9 Gastro-esophageal reflux disease without esophagitis; F17.210 Nicotine dependence, cigarettes, uncomplicated; Y90.4 Blood alcohol level of 80-99 mg/100 ml; Z79.899 Other long term (current) drug therapy; Z66 Do not resuscitate
CPT/HCPCS: 31500; 31720; 36415; 36600; 49082; 71045; 80048; 80053; 80076; 80184; 80202; 81001; 82077; 82105; 82140; 82274; 82803; 83605; 83690; 83735; 84100; 85014; 85018; 85025; 85610; 85730; 86850; 86900; 86901; 87040; 87070; 87086; 87205; 87640; 94002; 94003; 94640; 94762; 97802; 99251; 99285; 99406; J7030; J7040; J7050; P9047; A4216; G0463; J0696; J2405; J3010; J3490